=== PATIENT | male | born 1960 | race Caucasian/White ===

== ENCOUNTER → 2018-03-06 07:08 | Outpatient (CLI) | payer OTHER, SELFPAY ==
[2018-03-06 08:02] LABS: AST(SGOT) 20 U/L (15-37); Alanine Aminotransfer ALT/SGPT 30 U/L (16-61); Albumin, Serum 3.4 g/dL (3.2-5.0); Alkaline Phosphatase 110 U/L (45-117); Bilirubin, Direct 0.23 mg/dL (0.00-0.30); Cholesterol 107 mg/dL (200); Globulin 3.5 g/dL (2.2-4.2); High Density Lipoprotein 33 mg/dL; Protein, Total 6.9 g/dL (6.4-8.2); Triglycerides 160 mg/dL; Very Low Density Lipoprotein 32 mg/dL (5-40)
== END ==
PROVIDERS: Visit Provider Physician Assistant Medical
DX: E78.5 Hyperlipidemia, unspecified (principal); Z79.899 Other long term (current) drug therapy
CPT/HCPCS: 36415; 80061; 80076

== ENCOUNTER → 2018-05-20 12:05 | Outpatient (CLI) | payer OTHER, SELFPAY ==
[2018-05-20 13:32] LABS: Anion Gap 6 (5-15); BUN 13 mg/dL (7-18); BUN/Creat Ratio 13.1 RATIO (10-20); Calcium,Total 8.6 mg/dL (8.5-10.1); Chloride 108 mmol/L (98-107); Creatinine, Serum 0.99 mg/dL (0.70-1.30); EST Glomerular Filtration Rate 82 mL/min (>60); Est Glom Filt Rate - Afr Amer 99 mL/min (>60); Glucose 100 mg/dL (74-106); Potassium 4.3 mmol/L (3.5-5.1); Sodium Level 141 mmol/L (136-145)
== END ==
PROVIDERS: Visit Provider Internal Medicine Cardiovascular Disease
DX: I48.0 Paroxysmal atrial fibrillation (principal)
CPT/HCPCS: 36415; 80048

== ENCOUNTER → 2018-11-11 07:16 | Outpatient (CLI) | payer OTHER, SELFPAY ==
[2018-07-12 13:33] VITALS: BMI 35.4
[2018-11-11 08:50] LABS: AST(SGOT) 18 U/L (15-37); Alanine Aminotransfer ALT/SGPT 32 U/L (16-61); Albumin, Serum 3.3 g/dL (3.2-5.0); Alkaline Phosphatase 117 U/L (45-117); Bilirubin, Direct 0.18 mg/dL (0.00-0.30); Cholesterol 110 mg/dL (200); Globulin 3.6 g/dL (2.2-4.2); High Density Lipoprotein 36 mg/dL; Protein, Total 6.9 g/dL (6.4-8.2); Triglycerides 138 mg/dL; Very Low Density Lipoprotein 28 mg/dL (5-40)
== END ==
PROVIDERS: Referring Provider Internal Medicine Cardiovascular Disease; Visit Provider Internal Medicine Cardiovascular Disease
DX: E78.5 Hyperlipidemia, unspecified (principal)
CPT/HCPCS: 36415; 80061; 80076

== ENCOUNTER → 2019-05-09 07:33 | Outpatient (CLI) | payer OTHER, SELFPAY ==
[2019-03-17 11:12] VITALS: BMI 36.6
[2019-05-09 08:52] LABS: AST(SGOT) 19 U/L (15-37); Alanine Aminotransfer ALT/SGPT 33 U/L (16-61); Albumin, Serum 3.3 g/dL (3.2-5.0); Alkaline Phosphatase 116 U/L (45-117); Cholesterol 108 mg/dL (200); Globulin 3.3 g/dL (2.2-4.2); High Density Lipoprotein 35 mg/dL; Protein, Total 6.6 g/dL (6.4-8.2); Triglycerides 138 mg/dL; Very Low Density Lipoprotein 28 mg/dL (5-40)
== END ==
PROVIDERS: Referring Provider Internal Medicine Cardiovascular Disease; Visit Provider Internal Medicine Cardiovascular Disease
DX: E78.5 Hyperlipidemia, unspecified (principal)
CPT/HCPCS: 36415; 80061; 80076

== ENCOUNTER 2020-12-24 20:22 | Outpatient (RCR) | payer OTHER, SELFPAY ==
[2020-05-12 09:48] VITALS: BMI 34.0
[2020-12-24] MEDS: COVID-19 VACC, MRNA(PFIZER)/PF 30 MCG/0.3 ML SYRINGE IM (14:50)
[2021-01-14] MEDS: COVID-19 VACC, MRNA(PFIZER)/PF 30 MCG/0.3 ML SYRINGE IM (14:27)
== END 2021-03-22 23:59 ==
LOC: IMMUN 20:22
PROVIDERS: Visit Provider Family Medicine
DX: Z23 Encounter for immunization (principal)
CPT/HCPCS: 0001A; 0002A; 91300

== ENCOUNTER → 2021-03-09 07:04 | Outpatient (CLI) | payer OTHER, SELFPAY ==
[2021-02-21 09:45] VITALS: BMI 34.1
[2021-03-09 08:09] LABS: AST(SGOT) 20 U/L (15-37); Alanine Aminotransfer ALT/SGPT 29 U/L (16-61); Albumin, Serum 3.5 g/dL (3.2-5.0); Alkaline Phosphatase 102 U/L (45-117); Bilirubin, Direct 0.22 mg/dL (0.00-0.30); Cholesterol 107 mg/dL (200); Globulin 3.5 g/dL (2.2-4.2); High Density Lipoprotein 38 mg/dL; Triglycerides 136 mg/dL; Very Low Density Lipoprotein 27 mg/dL (5-40)
== END ==
PROVIDERS: Referring Provider Internal Medicine Cardiovascular Disease; Visit Provider Internal Medicine Cardiovascular Disease
DX: E78.00 Pure hypercholesterolemia, unspecified (principal)
CPT/HCPCS: 36415; 80061; 80076

== ENCOUNTER → 2021-07-28 14:44 | Outpatient (CLI) | payer OTHER, SELFPAY ==
[2021-07-28 14:48] LABS: Bacteria 0 SEEN /hpf (None Seen); Red Blood Cells-Urine 0 SEEN /hpf (0-5); Squamous Epithelial Cells - UA 0 SEEN /hpf (0-5); White Blood Cells 0 SEEN /hpf (0-5)
[2021-07-28 17:44] LABS: Absolute Lymphocyte Count 1.47 X10^3/uL (0.83-4.51); Absolute Neutrophil Count 6.8 X10^3/uL (2.0-7.7); Basophil# 0.07 X10^3/uL; Basophil% 0.8 % (0-1); Eosinophil# 0.14 X10^3/uL; Eosinophils% 1.5 % (0-5); Hematocrit 49.8 % (40-54); Hemoglobin 16.6 g/dL (13.0-16.5); Lymphocyte # 1.47 X10^3/ul (0.83-4.51); Lymphocyte % 16.1 % (19-41); Mean Corp Hgb Conc 33.3 g/dL (32-36); Mean Corpuscular Hgb 29.8 pg (27.0-32.0); Mean Corpuscular Volume 89.4 fL (80-94); Mean Platelet Vol. 10.1 fl (6.2-12.0); Monocyte# 0.59 X10^3/uL; Monocyte% 6.5 % (0-10); NRBC Flagged by Analyzer 0 % (0-5); Neutrophil # 6.79 X10^3/uL (2.7-7.7); Neutrophil % 74.6 % (47-70); Platelet Count 319 K/mm3 (150-450); RBC Distribution Width SD 42.6 fl (35.1-43.9); Red Blood Count 5.57 M/mm3 (4.6-6.2); White Blood Count 9.1 K/mm3 (4.4-11.0)
[2021-07-28 17:50] LABS: Color, Urine Yellow (Yellow); Glucose, Dipstick Normal (Normal); Ketone-Dipstick 5 mg/dl (Negative); Leukocyte Esterase-Dipstick 25 /ul (Negative); Nitrite-Dipstick Negative (Negative); Occult Blood-Urine Negative /ul (Negative); Protein-Dipstick 15 mg/dl (Negative); Urine Bilirubin Dipstick Negative (Negative); Urine Clarity Clear (Clear); Urine Urobilinogen 1 mg/dl (Normal); Urine pH 6.5 (5.0 - 8.0)
[2021-07-28 18:00] LABS: Mucous, Urine 1+ /hpf (<or=2+)
[2021-07-28 18:06] LABS: ALB/GLOB Ratio 0.9 RATIO (0.9-2.4); AST(SGOT) 20 U/L (15-37); Alanine Aminotransfer ALT/SGPT 37 U/L (16-61); Albumin, Serum 3.6 g/dL (3.2-5.0); Alkaline Phosphatase 116 U/L (45-117); Anion Gap 5 (5-15); BUN 16 mg/dL (7-18); BUN/Creat Ratio 15.7 RATIO (10-20); Calcium,Total 8.8 mg/dL (8.5-10.1); Chloride 107 mmol/L (98-107); Cholesterol 116 mg/dL (200); Creatinine, Serum 1.02 mg/dL (0.70-1.30); EST Glomerular Filtration Rate 78 mL/min (>60); Est Glom Filt Rate - Afr Amer 95 mL/min (>60); Glucose 110 mg/dL (74-106); High Density Lipoprotein 36 mg/dL; Potassium 4.2 mmol/L (3.5-5.1); Protein, Total 7.6 g/dL (6.4-8.2); Sodium Level 139 mmol/L (136-145); Thyroid Stim Hormone (TSH) 1.39 uIU/mL (0.358-3.74); Triglycerides 230 mg/dL; Very Low Density Lipoprotein 46 mg/dL (5-40)
[2021-07-29 14:28] LABS: Ferritin 150 ng/mL (26-388); Iron 80 ug/dL (65-175); Iron Binding Capacity,Total 224 ug/dL (250-450); PERCENT IRON SATURATION 35.7 % (15.0-55.0)
[2021-07-29 14:45] LABS: Hemoglobin A1c 5.7 % (3.8-5.6)
[2021-08-01 17:07] LABS: Transferrin 189 mg/dL (177-329)
[2021-08-01 17:17] LABS: Anti-Thyroglobulin AB < 1.0 IU/mL (0.0-0.9); Thyroid Peroxidase AB < 8 IU/mL (0-34)
== END ==
PROVIDERS: PCP Family Medicine; Referring Provider Family Medicine; Visit Provider Family Medicine
DX: D75.1 Secondary polycythemia (principal); I10 Essential (primary) hypertension; I48.91 Unspecified atrial fibrillation; R73.09 Other abnormal glucose
CPT/HCPCS: 36415; 80053; 80061; 81001; 82728; 83036; 83540; 83550; 83735; 84432; 84443; 84466; 85025; 86376; 86800

== ENCOUNTER → 2021-08-10 07:12 | Outpatient (CLI) | payer OTHER, SELFPAY ==
--- NOTE | 2021-08-10 07:15 | CT_ITS ---
STUDY: LOW DOSE CT LUNG CANCER SCREENING REASON FOR EXAM: Male, 60 years old. NICOTINE DEPENDENCY. Patient smoked 3 packs per day for 44 years. RADIATION DOSAGE (If Supplied By Facility): CTDIvol = ( 4.02 ) mGy, DLP = ( 157.03 ) mGycm TECHNIQUE: No contrast was administered. Low dose technique was utilized (average mAS-38 and kVp 120). 1.25 mm axial source images with a slice interval of 1.25-mm were reconstructed in lung windows. 2.5 mm axial source images with a slice interval of 2.5-mm were reconstructed in lung windows. 5.0 mm axial source images with a slice interval of 5.0-mm were reconstructed in soft tissue windows. Nodule measured using lung windows on PACS and/or independent workstation with automated measurement of minimum and maximum diameter. Nodule measurement reported as average diameter rounded to the nearest whole number. Growth is defined as an increase ins size of greater than 1.5 mm. COMPARISON: None. NODULES: No suspicious nodules are seen. Emphysema: Hyperinflation. Emphysematous changes. Endobronchial lesion: None Aorta: Mild calcific plaques at the level of the aortic arch. Coronary arteries: Coronary artery calcification. Pulmonary artery: Unremarkable. Mediastinal nodes: Small benign-appearing mediastinal lymph nodes. Other chest and abdominal findings: CT/Low Dose CT Lung Screening IMPRESSION: Lung-RADS category 2 - Continue annual screening with LDCT in 12 months. IMPORTANT NOTES FOR USE: ACR Lung-RADS Version 1.1 Assessment Categories Release Date: 2018 Category: Coded 0-4 bases on nodule(s) with highest degree of suspicion. Negative screen is defined as categories 1 and 2; a positive screen is defined as categories 3 and 4. Category 3 and 4A nodules that are unchanged on interval CT should be coded as category 2, and individuals returned to screening in 12 months. Category 4X: Category 3 or 4 nodules with additional imaging findings that increase the suspicion of lung cancer, such as spiculation, GGN that doubles in size in 1 year, enlarged lymph notes, etc. Category Modifiers: S (significant finding unrelated to lung cancer) Electronically Signed: Shiv Moran MD at 8:58 EDT , Service support ,
--- NOTE | 2021-08-10 07:16 | US_ITS ---
STUDY: THYROID ULTRASOUND REASON FOR EXAM: Male, 60 years old. THYROMEGALY TECHNIQUE: Ultrasound evaluation of the thyroid was performed with real-time and static briggs-scale imaging. COMPARISON: None. FINDINGS: RIGHT LOBE: The right lobe of the thyroid gland measures 5.2 x 2.1 x 1.9 cm. There is a homogeneous echotexture. There are no demonstrated solid, cystic or complex lesions. LEFT LOBE: The left lobe of the thyroid gland measures 4.7 x 2.2 x 1.9 cm. There is a homogeneous echotexture. There are no demonstrated solid, cystic or complex lesions. ISTHMUS: The isthmus measures 3 mm thick. . The regional lymph nodes are normal. US/Thyroid IMPRESSION: Normal ultrasound examination of the thyroid. Electronically Signed: David Guo MD at 8:51 EDT Tel , Service support ,
--- NOTE | 2021-08-10 07:17 | ECHOCS_ITS ---
Reason For Study: SOB Procedure This was a 2D Doppler, Color Flow transthoracic echocardiogram. The study was technically difficult. Contrast injection was performed. Exam performed in department. Left Ventricle Normal LV size. Left ventricular systolic function is normal. The estimated ejection fraction is 55 %. Stage 2 diastolic dysfunction. No regional wall motion abnormalities noted. Right Ventricle Normal RV size. Normal systolic function. Atria Normal left atrium. The right atrium is moderately enlarged. Mitral Valve Normal mitral valve. Tricuspid Valve Normal tricuspid valve. Mild (1+) tricuspid valve insufficiency. Pulmonary artery systolic pressure is 35 mmHg. Pulmonic Valve Normal pulmonic valve. Great Vessels Normal aortic root. The pulmonary artery is normal size. Normal inferior vena cava. Pericardium/Pleural No pericardial effusion. Medication 22 gauge I.V. with prn adaptor inserted into left arm. Diluted definity 3.0ml given slow IV push to enhance endocardial definition. MMode/2D Measurements & Calculations LVIDd: 4.9 cm IVSd: 0.99 cm Ao root diam: 3.8 cm LVIDs: 3.4 cm LVPWd: 1.0 cm RVDd: 3.7 cm FS: 29.6 % LAV(MOD-bp): 80.4 ml LVAd ap4: 44.5 cm2 LVAd ap2: 39.6 cm2 LAV(MOD-bp) Indexed: 31.5 ml/m2 LVLd ap4: 9.5 cm LVLd ap2: 9.5 cm LAV(MOD-sp2): 69.6 ml EDV(MOD-sp4): 172.9 ml EDV(MOD-sp2): 145.8 ml LAV(MOD-sp4): 86.9 ml EDV(sp4-el): 177.6 ml EDV(sp2-el): 140.9 ml LVAs ap4: 25.1 cm2 LVAs ap2: 24.9 cm2 LVLs ap4: 7.7 cm LVLs ap2: 8.1 cm ESV(MOD-sp4): 67.3 ml ESV(MOD-sp2): 66.3 ml ESV(sp4-el): 69.5 ml ESV(sp2-el): 65.6 ml EF(MOD-sp4): 61.1 % EF(MOD-sp2): 54.5 % EF(sp4-el): 60.9 % SV(MOD-sp4): 105.7 ml SV(MOD-sp2): 79.5 ml SV(sp4-el): 108.1 ml LA dimension(2D): 2.8 cm LA A4 area: 25.8 cm2 RA A4 area: 20.2 cm2 Doppler Measurements & Calculations MV E max arie: 71.0 cm/sec Lat Peak E' Arie: 11.5 cm/sec Med Peak E' Arie: 8.0 cm/sec MV A max arie: 58.3 cm/sec E/E' lat: 6.2 E/E' med: 8.9 MV E/A: 1.2 Ao V2 max: 108.4 cm/sec LV V1 max: 91.4 cm/sec PA V2 max: 74.9 cm/sec Ao max P.7 mmHg LV V1 max P.3 mmHg TR max arie: 276.9 cm/sec TR max P.7 mmHg ECHO/Echo Complete W/ Contrast Interpretation Summary Normal LV size. Left ventricular systolic function is normal. The estimated ejection fraction is 55 %. The right atrium is moderately enlarged. Pulmonary artery systolic pressure is 35 mmHg. Stage 2 diastolic dysfunction. Ordering Physician: Markus Gunter Referring Physician: Markus Gunter Performed By: Ivette Oscar, SONIA, RVT
== END ==
PROVIDERS: PCP Family Medicine; Referring Provider Family Medicine; Visit Provider Family Medicine
DX: R06.02 Shortness of breath (principal); Z12.2 Encounter for screening for malignant neoplasm of respiratory organs; F17.210 Nicotine dependence, cigarettes, uncomplicated; I51.7 Cardiomegaly
CPT/HCPCS: 71271; 76536; 93306; Q9957; A4216; C8929; J3490

== ENCOUNTER 2021-12-27 10:06 | Outpatient (CLI) | payer OTHER, SELFPAY ==
[2021-12-27 12:07] LABS: Absolute Lymphocyte Count 1.35 X10^3/uL (0.83-4.51); Absolute Neutrophil Count 4.5 X10^3/uL (2.0-7.7); Basophil# 0.06 X10^3/uL; Basophil% 0.9 % (0-1); Eosinophil# 0.15 X10^3/uL; Eosinophils% 2.3 % (0-5); Hematocrit 49.4 % (40-54); Hemoglobin 16.6 g/dL (13.0-16.5); Lymphocyte # 1.35 X10^3/ul (0.83-4.51); Lymphocyte % 20.3 % (19-41); Mean Corp Hgb Conc 33.6 g/dL (32-36); Mean Corpuscular Hgb 30.5 pg (27.0-32.0); Mean Corpuscular Volume 90.8 fL (80-94); Mean Platelet Vol. 9.6 fl (6.2-12.0); Monocyte# 0.52 X10^3/uL; Monocyte% 7.8 % (0-10); NRBC Flagged by Analyzer 0 % (0-5); Neutrophil # 4.52 X10^3/uL (2.7-7.7); Neutrophil % 67.9 % (47-70); Platelet Count 311 K/mm3 (150-450); RBC Distribution Width CV 12.8 % (11.6-14.6); RBC Distribution Width SD 41.9 fl (35.1-43.9); Red Blood Count 5.44 M/mm3 (4.6-6.2); White Blood Count 6.7 K/mm3 (4.4-11.0)
[2021-12-27 12:42] LABS: Hemoglobin A1c 5.9 % (3.8-5.6)
[2021-12-27 12:47] LABS: AST(SGOT) 21 U/L (15-37); Alanine Aminotransfer ALT/SGPT 36 U/L (16-61); Albumin, Serum 3.6 g/dL (3.2-5.0); Alkaline Phosphatase 98 U/L (45-117); Anion Gap 4 (5-15); BUN 15 mg/dL (7-18); BUN/Creat Ratio 15.3 RATIO (10-20); Calcium,Total 9.1 mg/dL (8.5-10.1); Chloride 106 mmol/L (98-107); Cholesterol 106 mg/dL (200); Creatinine, Serum 0.98 mg/dL (0.70-1.30); EST Glomerular Filtration Rate 82 mL/min (>60); Est Glom Filt Rate - Afr Amer 99 mL/min (>60); Globulin 3.6 g/dL (2.2-4.2); Glucose 125 mg/dL (74-106); High Density Lipoprotein 35 mg/dL; Magnesium 1.9 mg/dL (1.6-2.6); Potassium 4.4 mmol/L (3.5-5.1); Protein, Total 7.2 g/dL (6.4-8.2); Sodium Level 138 mmol/L (136-145); Triglycerides 128 mg/dL; Very Low Density Lipoprotein 26 mg/dL (5-40)
== END 2021-12-27 23:59 | disposition home or self-care (01) ==
LOC: MFPLAB 10:07
PROVIDERS: PCP Family Medicine; Referring Provider Family Medicine; Visit Provider Family Medicine
DX: I25.10 Atherosclerotic heart disease of native coronary artery without angina pectoris (principal); I48.91 Unspecified atrial fibrillation; I10 Essential (primary) hypertension; R73.02 Impaired glucose tolerance (oral)
CPT/HCPCS: 36415; 80053; 80061; 83036; 83735; 85025

== ENCOUNTER → 2022-04-25 | Outpatient (CLI) | payer OTHER, SELFPAY ==
[2022-04-25 21:16] LABS: Hemoglobin A1c 5.7 % (3.8-5.6)
== END | disposition home or self-care (01) ==
LOC: MFPLAB 09:37
PROVIDERS: PCP Family Medicine; Referring Provider Family Medicine; Visit Provider Family Medicine
DX: R73.02 Impaired glucose tolerance (oral) (principal)
CPT/HCPCS: 36415; 83036

== ENCOUNTER → 2022-07-28 | Outpatient (CLI) | payer OTHER, SELFPAY ==
[2022-07-28 09:30] LABS: Bacteria 0 SEEN /hpf (None Seen); Mucous, Urine 0 SEEN /hpf (<or=2+); Red Blood Cells-Urine 0 SEEN /hpf (0-5); Squamous Epithelial Cells - UA 0 SEEN /hpf (0-5); White Blood Cells 0 SEEN /hpf (0-5)
[2022-07-28 10:00] LABS: Absolute Lymphocyte Count 1.32 X10^3/uL (0.83-4.51); Absolute Neutrophil Count 4.2 X10^3/uL (2.0-7.7); Basophil# 0.06 X10^3/uL; Eosinophil# 0.25 X10^3/uL; Hematocrit 47.3 % (40-54); Lymphocyte # 1.32 X10^3/ul (0.83-4.51); Mean Corp Hgb Conc 33.8 g/dL (32-36); Mean Corpuscular Hgb 30.9 pg (27.0-32.0); Mean Corpuscular Volume 91.5 fL (80-94); Mean Platelet Vol. 9.1 fl (6.2-12.0); Monocyte# 0.47 X10^3/uL; Monocyte% 7.5 % (0-10); NRBC Flagged by Analyzer 0 % (0-5); Neutrophil # 4.17 X10^3/uL (2.7-7.7); Platelet Count 262 K/mm3 (150-450); RBC Distribution Width CV 12.8 % (11.6-14.6); RBC Distribution Width SD 43.3 fl (35.1-43.9); Red Blood Count 5.17 M/mm3 (4.6-6.2); White Blood Count 6.3 K/mm3 (4.4-11.0)
[2022-07-28 10:04] LABS: Color, Urine Yellow (Yellow); Glucose, Dipstick Normal (Normal); Ketone-Dipstick 5 mg/dl (Negative); Leukocyte Esterase-Dipstick 25 /ul (Negative); Nitrite-Dipstick Negative (Negative); Occult Blood-Urine Negative /ul (Negative); Protein-Dipstick Negative (Negative); Urine Bilirubin Dipstick Negative (Negative); Urine Clarity Clear (Clear); Urine Urobilinogen Normal (Normal)
[2022-07-28 10:49] LABS: Anion Gap 5 (5-15); BUN 17 mg/dL (7-18); BUN/Creat Ratio 19.3 RATIO (10-20); Calcium,Total 8.7 mg/dL (8.5-10.1); Chloride 111 mmol/L (98-107); Cholesterol 103 mg/dL (200); Creatinine, Serum 0.88 mg/dL (0.70-1.30); EST Glomerular Filtration Rate 93 mL/min (>60); Est Glom Filt Rate - Afr Amer 112 mL/min (>60); Glucose 115 mg/dL (74-106); High Density Lipoprotein 38 mg/dL; Potassium 4.3 mmol/L (3.5-5.1); Sodium Level 141 mmol/L (136-145); Triglycerides 105 mg/dL; Very Low Density Lipoprotein 21 mg/dL (5-40)
[2022-07-28 10:58] LABS: Hemoglobin A1c 5.8 % (3.8-5.6)
== END | disposition home or self-care (01) ==
LOC: MFPLAB 09:29
PROVIDERS: PCP Family Medicine; Referring Provider Family Medicine; Visit Provider Family Medicine
DX: I10 Essential (primary) hypertension (principal); D75.1 Secondary polycythemia; E78.5 Hyperlipidemia, unspecified; R73.09 Other abnormal glucose
CPT/HCPCS: 36415; 80048; 80061; 81001; 83036; 83735; 85025

== ENCOUNTER → 2022-11-22 | Outpatient (CLI) | payer OTHER, SELFPAY ==
[2022-11-22 09:42] LABS: Bacteria 0 SEEN /hpf (None Seen); Mucous, Urine 0 SEEN /hpf (<or=2+); Red Blood Cells-Urine 0 SEEN /hpf (0-5); Squamous Epithelial Cells - UA 0 SEEN /hpf (0-5); White Blood Cells 0 SEEN /hpf (0-5)
[2022-11-22 10:13] LABS: Absolute Lymphocyte Count 1.28 X10^3/uL (0.83-4.51); Absolute Neutrophil Count 4.8 X10^3/uL (2.0-7.7); Basophil# 0.09 X10^3/uL; Basophil% 1.3 % (0-1); Eosinophil# 0.35 X10^3/uL; Eosinophils% 4.9 % (0-5); Hematocrit 47.8 % (40-54); Hemoglobin 15.9 g/dL (13.0-16.5); Lymphocyte # 1.28 X10^3/ul (0.83-4.51); Mean Corp Hgb Conc 33.3 g/dL (32-36); Mean Corpuscular Hgb 30.4 pg (27.0-32.0); Mean Corpuscular Volume 91.4 fL (80-94); Mean Platelet Vol. 9.2 fl (6.2-12.0); Monocyte# 0.55 X10^3/uL; Monocyte% 7.7 % (0-10); NRBC Flagged by Analyzer 0 % (0-5); Neutrophil # 4.83 X10^3/uL (2.7-7.7); Neutrophil % 67.7 % (47-70); Platelet Count 265 K/mm3 (150-450); RBC Distribution Width SD 44.3 fl (35.1-43.9); Red Blood Count 5.23 M/mm3 (4.6-6.2); White Blood Count 7.1 K/mm3 (4.4-11.0)
[2022-11-22 10:14] LABS: Color, Urine Yellow (Yellow); Glucose, Dipstick Normal (Normal); Ketone-Dipstick 5 mg/dl (Negative); Leukocyte Esterase-Dipstick 25 /ul (Negative); Nitrite-Dipstick Negative (Negative); Occult Blood-Urine Negative /ul (Negative); Protein-Dipstick Negative (Negative); Urine Bilirubin Dipstick Negative (Negative); Urine Clarity Clear (Clear); Urine Urobilinogen 1 mg/dl (Normal)
[2022-11-22 10:30] LABS: Hemoglobin A1c 5.8 % (3.8-5.6)
[2022-11-22 10:57] LABS: AST(SGOT) 16 U/L (15-37); Alanine Aminotransfer ALT/SGPT 26 U/L (16-61); Albumin, Serum 3.5 g/dL (3.2-5.0); Alkaline Phosphatase 90 U/L (45-117); Anion Gap 3 (5-15); BUN 19 mg/dL (7-18); BUN/Creat Ratio 20.9 RATIO (10-20); Chloride 109 mmol/L (98-107); Cholesterol 107 mg/dL (200); Creatinine, Serum 0.91 mg/dL (0.70-1.30); EST Glomerular Filtration Rate 89 mL/min (>60); Est Glom Filt Rate - Afr Amer 108 mL/min (>60); Globulin 3.5 g/dL (2.2-4.2); Glucose 122 mg/dL (74-106); High Density Lipoprotein 41 mg/dL; Magnesium 2.1 mg/dL (1.6-2.6); Potassium 4.3 mmol/L (3.5-5.1); Sodium Level 141 mmol/L (136-145); Thyroid Stim Hormone (TSH) 1.55 uIU/mL (0.358-3.74); Triglycerides 112 mg/dL; Very Low Density Lipoprotein 22 mg/dL (5-40)
== END | disposition home or self-care (01) ==
LOC: MFPLAB 09:40
PROVIDERS: PCP Family Medicine; Referring Provider Family Medicine; Visit Provider Family Medicine
DX: I10 Essential (primary) hypertension (principal); I48.91 Unspecified atrial fibrillation; R73.02 Impaired glucose tolerance (oral)
CPT/HCPCS: 36415; 80053; 80061; 81001; 83036; 83735; 84443; 85025

== ENCOUNTER → 2023-02-21 | Outpatient (CLI) | payer OTHER, SELFPAY ==
[2023-02-21 12:31] LABS: Absolute Lymphocyte Count 1.69 X10^3/uL (0.83-4.51); Absolute Neutrophil Count 5.2 X10^3/uL (2.0-7.7); Basophil# 0.09 X10^3/uL; Basophil% 1.1 % (0-1); Eosinophil# 0.28 X10^3/uL; Eosinophils% 3.5 % (0-5); Hematocrit 51.1 % (40-54); Lymphocyte # 1.69 X10^3/ul (0.83-4.51); Lymphocyte % 21.3 % (19-41); Mean Corp Hgb Conc 33.3 g/dL (32-36); Mean Corpuscular Hgb 30.2 pg (27.0-32.0); Mean Corpuscular Volume 90.9 fL (80-94); Mean Platelet Vol. 9.8 fl (6.2-12.0); Monocyte# 0.63 X10^3/uL; Monocyte% 7.9 % (0-10); NRBC Flagged by Analyzer 0 % (0-5); Neutrophil # 5.22 X10^3/uL (2.7-7.7); Neutrophil % 65.7 % (47-70); Platelet Count 299 K/mm3 (150-450); RBC Distribution Width CV 12.9 % (11.6-14.6); RBC Distribution Width SD 43.5 fl (35.1-43.9); Red Blood Count 5.62 M/mm3 (4.6-6.2)
[2023-02-21 13:04] LABS: ALB/GLOB Ratio 0.9 RATIO (0.9-2.4); AST(SGOT) 14 U/L (15-37); Alanine Aminotransfer ALT/SGPT 29 U/L (16-61); Albumin, Serum 3.5 g/dL (3.2-5.0); Alkaline Phosphatase 90 U/L (45-117); Anion Gap 6 (5-15); BUN 20 mg/dL (7-18); BUN/Creat Ratio 17.4 RATIO (10-20); Calcium,Total 9.1 mg/dL (8.5-10.1); Chloride 109 mmol/L (98-107); Cholesterol 113 mg/dL (200); Creatinine, Serum 1.15 mg/dL (0.70-1.30); EST Glomerular Filtration Rate 68 mL/min (>60); Est Glom Filt Rate - Afr Amer 82 mL/min (>60); Globulin 3.8 g/dL (2.2-4.2); Glucose 110 mg/dL (74-106); High Density Lipoprotein 40 mg/dL; Magnesium 2.3 mg/dL (1.6-2.6); Potassium 4.6 mmol/L (3.5-5.1); Protein, Total 7.3 g/dL (6.4-8.2); Sodium Level 140 mmol/L (136-145); Triglycerides 111 mg/dL; Very Low Density Lipoprotein 22 mg/dL (5-40)
[2023-02-21 13:20] LABS: Hemoglobin A1c 5.7 % (3.8-5.6)
== END | disposition home or self-care (01) ==
LOC: MFPLAB 09:51
PROVIDERS: PCP Family Medicine; Visit Provider Family Medicine
DX: I25.10 Atherosclerotic heart disease of native coronary artery without angina pectoris (principal); I48.91 Unspecified atrial fibrillation; R73.02 Impaired glucose tolerance (oral)
CPT/HCPCS: 36415; 80053; 80061; 83036; 83735; 85025

== ENCOUNTER → 2023-06-25 | Outpatient (CLI) | payer OTHER, SELFPAY ==
[2023-06-25 09:19] LABS: Bacteria 0 SEEN /hpf (None Seen); Mucous, Urine 0 SEEN /hpf (<or=2+); Red Blood Cells-Urine 0 SEEN /hpf (0-5); Squamous Epithelial Cells - UA 0 SEEN /hpf (0-5); White Blood Cells 0 SEEN /hpf (0-5)
[2023-06-25 10:23] LABS: Absolute Lymphocyte Count 1.75 X10^3/uL (0.83-4.51); Absolute Neutrophil Count 5.5 X10^3/uL (2.0-7.7); Basophil# 0.09 X10^3/uL; Basophil% 1.1 % (0-1); Eosinophil# 0.28 X10^3/uL; Eosinophils% 3.4 % (0-5); Hematocrit 52.4 % (40-54); Hemoglobin 17.3 g/dL (13.0-16.5); Lymphocyte # 1.75 X10^3/ul (0.83-4.51); Lymphocyte % 21.2 % (19-41); Mean Corpuscular Volume 90.8 fL (80-94); Mean Platelet Vol. 9.6 fl (6.2-12.0); Monocyte# 0.59 X10^3/uL; Monocyte% 7.2 % (0-10); NRBC Flagged by Analyzer 0 % (0-5); Neutrophil # 5.48 X10^3/uL (2.7-7.7); Neutrophil % 66.4 % (47-70); Platelet Count 301 K/mm3 (150-450); RBC Distribution Width SD 43.6 fl (35.1-43.9); Red Blood Count 5.77 M/mm3 (4.6-6.2); White Blood Count 8.3 K/mm3 (4.4-11.0)
[2023-06-25 10:45] LABS: Color, Urine Yellow (Yellow); Glucose, Dipstick Normal (Normal); Ketone-Dipstick Negative (Negative); Leukocyte Esterase-Dipstick Negative /ul (Negative); Nitrite-Dipstick Negative (Negative); Occult Blood-Urine Negative /ul (Negative); Protein-Dipstick Negative (Negative); Specific Gravity, Urine 1.005 (1.002-1.030); Urine Bilirubin Dipstick Negative (Negative); Urine Clarity Clear (Clear); Urine Urobilinogen Normal (Normal)
[2023-06-25 10:59] LABS: AST(SGOT) 16 U/L (15-37); Alanine Aminotransfer ALT/SGPT 31 U/L (16-61); Albumin, Serum 3.4 g/dL (3.2-5.0); Alkaline Phosphatase 91 U/L (45-117); Anion Gap 7 (5-15); BUN 18 mg/dL (7-18); BUN/Creat Ratio 17.1 RATIO (10-20); Calcium,Total 9.2 mg/dL (8.5-10.1); Chloride 108 mmol/L (98-107); Cholesterol 111 mg/dL (200); Creatinine, Serum 1.05 mg/dL (0.70-1.30); EST Glomerular Filtration Rate 75 mL/min (>60); Est Glom Filt Rate - Afr Amer 91 mL/min (>60); Globulin 3.5 g/dL (2.2-4.2); Glucose 137 mg/dL (74-106); High Density Lipoprotein 37 mg/dL; Magnesium 2.2 mg/dL (1.6-2.6); Potassium 4.3 mmol/L (3.5-5.1); Protein, Total 6.9 g/dL (6.4-8.2); Sodium Level 139 mmol/L (136-145); Triglycerides 136 mg/dL; Very Low Density Lipoprotein 27 mg/dL (5-40)
[2023-06-25 11:33] LABS: Hemoglobin A1c 5.6 % (3.8-5.6)
== END | disposition home or self-care (01) ==
LOC: MFPLAB 09:17
PROVIDERS: PCP Family Medicine; Visit Provider Family Medicine
DX: I10 Essential (primary) hypertension (principal); I48.91 Unspecified atrial fibrillation; R73.02 Impaired glucose tolerance (oral)
CPT/HCPCS: 36415; 80053; 80061; 81001; 83036; 83735; 85025

== ENCOUNTER → 2023-12-25 | Outpatient (CLI) | payer MEDICARE, SELFPAY ==
[2023-12-25 11:01] LABS: Bacteria 0 SEEN /hpf (None Seen); Mucous, Urine 0 SEEN /hpf (<or=2+); Red Blood Cells-Urine 0 SEEN /hpf (0-5); Squamous Epithelial Cells - UA 0 SEEN /hpf (0-5); White Blood Cells 0 SEEN /hpf (0-5)
[2023-12-25 15:32] LABS: Absolute Lymphocyte Count 1.58 X10^3/uL (0.83-4.51); Absolute Neutrophil Count 4.4 X10^3/uL (2.0-7.7); Basophil% 1.4 % (0-1); Eosinophil# 0.29 X10^3/uL; Eosinophils% 4.1 % (0-5); Hematocrit 52.4 % (40-54); Hemoglobin 17.2 g/dL (13.0-16.5); Lymphocyte # 1.58 X10^3/ul (0.83-4.51); Lymphocyte % 22.5 % (19-41); Mean Corp Hgb Conc 32.8 g/dL (32-36); Mean Corpuscular Hgb 30.2 pg (27.0-32.0); Mean Corpuscular Volume 91.9 fL (80-94); Monocyte# 0.59 X10^3/uL; Monocyte% 8.4 % (0-10); NRBC Flagged by Analyzer 0 % (0-5); Neutrophil # 4.41 X10^3/uL (2.7-7.7); Neutrophil % 62.9 % (47-70); Platelet Count 300 K/mm3 (150-450); RBC Distribution Width CV 13.4 % (11.6-14.6); RBC Distribution Width SD 45.4 fl (35.1-43.9)
[2023-12-25 15:39] LABS: Color, Urine Yellow (Yellow); Glucose, Dipstick Normal (Normal); Ketone-Dipstick 5 mg/dl (Negative); Leukocyte Esterase-Dipstick 25 /ul (Negative); Nitrite-Dipstick Negative (Negative); Occult Blood-Urine 10 /ul (Negative); Protein-Dipstick 15 mg/dl (Negative); Urine Bilirubin Dipstick Negative (Negative); Urine Clarity Clear (Clear); Urine Urobilinogen Normal (Normal)
[2023-12-25 19:43] LABS: AST(SGOT) 20 U/L (15-37); Alanine Aminotransfer ALT/SGPT 28 U/L (16-61); Albumin, Serum 3.6 g/dL (3.2-5.0); Alkaline Phosphatase 91 U/L (45-117); Anion Gap 6 (5-15); BUN 18 mg/dL (7-18); BUN/Creat Ratio 16.5 RATIO (10-20); Chloride 107 mmol/L (98-107); Cholesterol 110 mg/dL (200); Creatinine, Serum 1.09 mg/dL (0.70-1.30); EST Glomerular Filtration Rate 72 mL/min (>60); Est Glom Filt Rate - Afr Amer 87 mL/min (>60); Globulin 3.6 g/dL (2.2-4.2); Glucose 123 mg/dL (74-106); High Density Lipoprotein 41 mg/dL; Magnesium 2.2 mg/dL (1.6-2.6); Potassium 4.3 mmol/L (3.5-5.1); Protein, Total 7.2 g/dL (6.4-8.2); Sodium Level 139 mmol/L (136-145); Thyroid Stim Hormone (TSH) 1.25 uIU/mL (0.358-3.74); Triglycerides 107 mg/dL; Very Low Density Lipoprotein 21 mg/dL (5-40)
--- OUTSIDE RECORDS SUMMARY | 2023-12-26 00:15 | XMS RPT_ITS | CCD ---
Author Name Unknown Address [address] [place] [address] Organization [facility] Care Team Providers Care Engineer Station Mainline Name Role Phone [facility] Fátima Unavailable Unavailable Medications Completed/Discontinued Medications Medication Drug Class(es) Dates Sig (Normalized) Sig (Original) aspirin 81 mg oral tablet (1 source) Nonsteroidal Anti-inflammatory Drug Start: 11-25-2013 take 1 tablet by mouth once daily ASPIRIN 81 MG TABS One tablet by mouth daily ASPIRIN [id number] Aleta Francois RN atorvastatin 80 mg oral tablet (1 source) HMG-CoA Reductase Inhibitor Start: 11-25-2013 take 1 tablet by mouth once daily LIPITOR 80 MG TABS One tablet by mouth daily ATORVASTATIN CALCIUM [id number] Harshad Blair MD clopidogrel 75 mg oral tablet (1 source) P2Y12 Platelet Inhibitor Start: 11-25-2013 take 1 tablet by mouth once daily PLAVIX 75 MG TABS One tablet by mouth daily CLOPIDOGREL BISULFATE [id number] Harshad Blair MD lisinopril 5 mg oral tablet (1 source) Angiotensin Converting Enzyme Inhibitor Start: 11-25-2013 take 1 tablet by mouth once daily LISINOPRIL 5 MG TABS One tablet by mouth daily LISINOPRIL [id number] Harshad Blair MD metoprolol tartrate 25 mg oral tablet (1 source) beta-Adrenergic Isi Start: 11-25-2013 take 1 tablet by mouth twice daily METOPROLOL TARTRATE 25 MG TABS One tablet by mouth twice daily METOPROLOL TARTRATE [id number] Harshad Blair MD Problems Active Problems Problem Classification Problem Date Documented Da te Episodic/Chronic Acute myocardial infarction (1 source) Non-ST elevation (NSTEMI) myocardial infarction; Translations: [Non-ST elevation (NSTEMI) myocardial infarction] Onset: 11-25-2013 11-25-2013 Chronic Cardiac dysrhythmias (2 sources) Paroxysmal atrial fibrillation; Translations: [Atrial fibrillation] Onset: 11-25-2013 05-18-2016 Chronic Coronary atherosclerosis and other heart disease (2 sources) Coronary atherosclerosis; Translations: [Atherosclerotic heart disease of redding coronary artery without angina pectoris] Onset: 11-25-2013 11-25-2013 Chronic Disorders of lipid metabolism (1 source) Hyperlipidemia; Translations: [Hyperlipidemia, unspecified] Onset: 11-18-2014 11-18-2014 Chronic Essential hypertension (1 source) Hypertensive disorder; Translations: [Essential (primary) hypertension] Onset: 11-25-2013 11-25-2013 Chronic Substance-related disorders (1 source) Tobacco dependence syndrome; Translations: [Nicotine dependence, unspecified, uncomplicated] Onset: 01-19-2014 01-19-2014 Chronic Unclassified (3 sources) Body mass index (BMI) 30.0-30.9, adult; Translations: [Body mass index (BMI) 31.0-31.9, adult] Onset: 01-19-2014 01-19-2014 Chronic Unclassified (1 source) Percutaneous transluminal coronary angioplasty ; Translations: [Coronary angioplasty status] Onset: 11-25-2013 11-25-2013 Past or Other Problems Problem Classification Problem Date Documented Da te Episodic/Chronic Other aftercare (1 source) Other skilled nursing (current) drug therapy; Translations: [Other joint terminal attack controller (current) drug therapy] Onset: 05-24-2015 05-24-2015 Episodic Other connective tissue disease (1 source) Hematoma; Translations: [Other injury of unspecified body region] Onset: 11-27-2013 11-28-2013 Episodic Unclassified (2 sources) Long-term drug therapy; Translations: [Long-term (current) use of other medications] Onset: 11-18-2014 Resolved: 05-24-2015 11-18-2014 Results Test Name Value Interpretation Reference Range Facil ity Vital Signs Date Time Vital Sign Value Performing Clinician Eliana logan 02-16-2017 14:03-0400 BMI (Body Mass Index) 32.61 kg/m2 [facility] Work Phone: 02-16-2017 14:03-0400 BP Diastolic 72 mm[Hg] [employer] [facility] Work Phone: 02-16-2017 14:03-0400 BP Systolic 122 mm[Hg] Harumi DeFinis [facility] Work Phone: 02-16-2017 14:03-0400 Pulse (Heart Rate) 72 /min Harumi TimeLyn[employer] [facility] Work Phone: 02-16-2017 14:03-0400 Respiratory Rate 18 /min [facility] Work Phone: 02-16-2017 14:03-0400 Weight 124.74 kg [facility] Work Phone: 05-19-2016 09:15-0400 BSA (Body Surface Area) 2.55 m2 [facility] Work Phone: 11-27-2013 08:26-0500 Height 195.58 cm [facility] Work Phone: Procedures Date Procedure Procedure Detail Performing Clinician Start: 06-04-2017 End: 08-20-2017 *Hepatic Function Panel Sherley morrell PA-C Work Phone: Start: 06-04-2017 End: 08-20-2017 Lipid 1996 panel - Serum or Plasma Sherley Goncalves PA-C Work Phone: Start: 11-15-2016 End: 12-04-2016 *Hepatic Function Panel Sherley morrell PA-C Work Phone: Start: 11-15-2016 End: 12-04-2016 Lipid 1996 panel - Serum or Plasma Sherley Goncalves PA-C Work Phone: Start: 05-19-2016 End: 05-19-2016 Follow Up Appt 6 months Sherley morrell PA-C Work Phone: Start: 05-19-2016 End: 05-19-2016 PFM Sherley Goncalves PA-C Work Phone: Start: 05-08-2016 End: 05-10-2016 *Hepatic Function Panel Sherley morrell PA-C Work Phone: Start: 05-08-2016 End: 05-10-2016 Lipid 1996 panel - Serum or Plasma Sherley Goncalves PA-C Work Phone: Start: 11-15-2015 End: 05-10-2016 *Hepatic Function Panel Harshad Blair MD Start: 11-15-2015 End: 11-15-2015 Follow Up Appt 6 months Harshad Blair MD Start: 11-15-2015 End: 05-10-2016 Lipid 1996 panel - Serum or Plasma Harshad Blair MD Start: 11-15-2015 End: 11-15-2015 MMM Harshad Blair MD Start: 11-08-2015 End: 11-08-2015 *Hepatic Function Panel Sherley morrell PA-C Work Phone: Start: 11-08-2015 End: 11-08-2015 Lipid 1996 panel - Serum or Plasma Sherley Goncalves PA-C Work Phone: Start: 05-24-2015 End: 05-25-2015 *Hepatic Function Panel Sherley morrell PA-C Work Phone: Start: 05-24-2015 End: 05-25-2015 Documentation of current medications Sherley Goncalves PA-C Work Phone: Start: 05-24-2015 End: 05-24-2015 Ecg routine ecg w/least 12 lds w/i&r Sherley Goncalves PA-C Work Phone: Start: 05-24-2015 End: 05-24-2015 Follow Up Appt 6 months Sherley morrell PA-C Work Phone: Start: 05-24-2015 End: 05-25-2015 Lipid 1996 panel - Serum or Plasma Sherley Goncalves PA-C Work Phone: Start: 05-24-2015 End: 05-24-2015 PFM Sehrley Goncalves PA-C Work Phone: Start: 05-24-2015 End: 05-25-2015 Smoking cessation education Sherley Frederick PA-C Work Phone: Start: 05-18-2015 End: 05-21-2015 *Hepatic Function Panel Sherley morrell PA-C Work Phone: Start: 05-18-2015 End: 05-21-2015 Lipid 1996 panel - Serum or Plasma Sherley Goncalves PA-C Work Phone: Start: 11-23-2014 End: 11-24-2014 Documentation of current medications Harshad Blair MD Start: 11-23-2014 End: 11-23-2014 Follow Up Appt 6 months Harshad Blair MD Start: 11-23-2014 End: 11-23-2014 SEBASTIAN Blair MD Start: 11-23-2014 End: 11-24-2014 Smoking cessation education Harshad nolan MD Start: 04-20-2014 End: 04-20-2014 Follow Up Appt 6 months Sherley morrell PA-C Work Phone: Start: 04-20-2014 End: 04-20-2014 PFM Sherley Goncalves PA-C Work Phone: Start: 01-19-2014 End: 01-19-2014 Ecg routine ecg w/least 12 lds w/i&r Harshad Blair MD Start: 01-19-2014 End: 01-19-2014 Follow Up Appt 3 months Harshad Blair MD Start: 01-19-2014 End: 01-19-2014 SEBASTIAN Blair MD Start: 01-10-2014 End: 01-15-2014 *Hepatic Function Panel Sherley morrell PA-C Work Phone: Start: 01-10-2014 End: 01-15-2014 Lipid 1996 panel - Serum or Plasma Sherley Goncalves PA-C Work Phone: Start: 12-23-2013 End: 12-23-2013 Nurse, Teaching, Wound Check (no charge) Harshad Blair MD Start: 12-04-2013 End: 12-04-2013 Nurse, Teaching, Wound Check (no charge) Sherley Goncalves PA-C Work Phone: Start: 11-27-2013 End: 12-04-2013 Arterial exam Sherley Goncalves PA-C Work Phone: Start: 11-27-2013 End: 02-19-2014 Cardiac Rehab Sherley Goncalves PA-C Work Phone: Start: 11-27-2013 End: 04-20-2014 Cardiovascular stress test using treadmill Sherley Goncalves PA-C Work Phone: Start: 11-27-2013 End: 11-27-2013 Follow Up Appt 6 weeks Sherley oglesby PA-C Work Phone: Start: 11-27-2013 End: 11-27-2013 Follow Up Appt Other Sherley france PA-C Work Phone: Start: 11-27-2013 End: 11-27-2013 PFM Sherley Goncalves PA-C Work Phone: Plan of Treatment Date Care Activity Detail Author Start: 02-18-2018 End: 08-21-2017 *Hepatic Function Panel *Hepatic Function Panel [facility] Work Phone: Start: 02-18-2018 End: 08-21-2017 Lipid panel [AGGREGATE] *Lipid Profile CC PCP [facility] Work Phone: Start: 08-23-2017 End: 08-23-2017 Appointment Appointment [facility] Work Phone: Start: 06-04-2017 End: 08-20-2017 *Hepatic Function Panel *Hepatic Function Panel [facility] Work Phone: Start: 06-04-2017 End: 08-20-2017 Lipid panel [AGGREGATE] *Lipid Profile CC PCP [facility] Work Phone: Start: 02-16-2017 End: 02-16-2017 Follow Up Appt 6 months Follow Up Appt 6 months [facility] Work Phone: Start: 02-16-2017 End: 02-16-2017 MMM MMM [facility] Work Phone: Start: 11-15-2016 End: 12-04-2016 *Hepatic Function Panel *Hepatic Function Panel [facility] Work Phone: Start: 11-15-2016 End: 12-04-2016 Lipid panel [AGGREGATE] *Lipid Profile CC PCP [facility] Work Phone: Start: 05-19-2016 End: 05-19-2016 Follow Up Appt 6 months Follow Up Appt 6 months [facility] Work Phone: Start: 05-19-2016 End: 05-19-2016 PFM PFM [facility] Work Phone: Start: 05-08-2016 End: 05-10-2016 *Hepatic Function Panel *Hepatic Function Panel [facility] Work Phone: Start: 05-08-2016 End: 05-10-2016 Lipid panel [AGGREGATE] *Lipid Profile CC PCP [facility] Work Phone: Start: 11-22-2015 End: 11-08-2015 *Hepatic Function Panel *Hepatic Function Panel [facility] Work Phone: Start: 11-22-2015 End: 11-08-2015 Lipid panel [AGGREGATE] *Lipid Profile CC PCP [facility] Work Phone: Start: 11-15-2015 End: 05-10-2016 *Hepatic Function Panel *Hepatic Function Panel [facility] Work Phone: Start: 11-15-2015 End: 11-15-2015 Follow Up Appt 6 months Follow Up Appt 6 months [facility] Work Phone: Start: 11-15-2015 End: 05-10-2016 Lipid panel [AGGREGATE] *Lipid Profile CC PCP [facility] Work Phone: Start: 11-15-2015 End: 11-15-2015 MMM MMM [facility] Work Phone: Start: 05-24-2015 End: 05-25-2015 *Hepatic Function Panel *Hepatic Function Panel [facility] Work Phone: Start: 05-24-2015 End: 05-24-2015 Ecg routine ecg w/least 12 lds w/i&r EKG (In office) [facility] Work Phone: Start: 05-24-2015 End: 05-24-2015 Follow Up Appt 6 months Follow Up Appt 6 months [facility] Work Phone: Start: 05-24-2015 End: 05-25-2015 Lipid panel [AGGREGATE] *Lipid Profile CC PCP [facility] Work Phone: Start: 05-24-2015 End: 05-24-2015 PFM PFM [facility] Work Phone: Start: 05-18-2015 End: 05-21-2015 *Hepatic Function Panel *Hepatic Function Panel [facility] Work Phone: Start: 05-18-2015 End: 05-21-2015 Lipid panel [AGGREGATE] *Lipid Profile CC PCP [facility] Work Phone: Start: 11-23-2014 End: 11-23-2014 Follow Up Appt 6 months Follow Up Appt 6 months [facility] Work Phone: Start: 11-23-2014 End: 11-23-2014 MMM MMM [facility] Work Phone: Start: 04-20-2014 End: 04-20-2014 Follow Up Appt 6 months Follow Up Appt 6 months [facility] Work Phone: Start: 04-20-2014 End: 04-20-2014 PFM PFM [facility] Work Phone: Start: 01-19-2014 End: 01-19-2014 Ecg routine ecg w/least 12 lds w/i&r EKG (In office) [facility] Work Phone: Start: 01-19-2014 End: 01-19-2014 Follow Up Appt 3 months Follow Up Appt 3 months [facility] Work Phone: Start: 01-19-2014 End: 01-19-2014 MMM MMM [facility] Work Phone: Start: 01-10-2014 End: 01-15-2014 *Hepatic Function Panel *Hepatic Function Panel [facility] Work Phone: Start: 01-10-2014 End: 01-15-2014 Lipid panel [AGGREGATE] *Lipid Profile CC PCP [facility] Work Phone: Start: 11-27-2013 End: 12-01-2013 Arterial exam Arterial exam [facility] Work Phone: Start: 11-27-2013 End: 11-27-2013 Cardiac Rehab Cardiac Rehab [facility] Work Phone: Start: 11-27-2013 End: 11-27-2013 Cardiovascular stress test using treadmill Treadmill stress test (no imaging) [facility] Work Phone: Start: 11-27-2013 End: 11-27-2013 Follow Up Appt 6 weeks Follow Up Appt 6 weeks [facility] Work Phone: Start: 11-27-2013 End: 11-27-2013 Follow Up Appt Other Follow Up Appt Other [facility] Work Phone: Start: 11-27-2013 End: 11-27-2013 PFM PFM [facility] Work Phone: Patient Education [facility] Work Phone: Additional Source Comments FOR RECORDS PERTAINING TO PATIENTS WHO ARE OR HAVE BEEN ENROLLED IN A CHEMICAL DEPENDENCY/SUBSTANCEABUSE PROGRAM, SOME INFORMATION MAY BE OMITTED. This clinical summary was aggregated from multiple sources. Caution should be exercised in using it in the provision of clinical care. This summary normalizes information from multiple sources, and as a consequence, information in this document may materially change the coding, format and clinical context of patient data. In addition, data may be omitted in some cases. CLINICAL DECISIONS SHOULD BE BASED ON THE PRIMARY CLINICAL RECORDS. [facility]. provides no warranty or guarantee of the accuracy or completeness of information in this document.
[2023-12-27 10:16] LABS: Ferritin 101 ng/mL (26-388); Iron 96 ug/dL (65-175); Iron Binding Capacity,Total 267 ug/dL (250-450)
== END | disposition home or self-care (01) ==
PROVIDERS: PCP Family Medicine; Visit Provider Family Medicine
DX: I10 Essential (primary) hypertension (principal); I48.91 Unspecified atrial fibrillation; D75.1 Secondary polycythemia; R73.02 Impaired glucose tolerance (oral)
CPT/HCPCS: 36415; 80053; 80061; 81001; 82728; 83036; 83540; 83550; 83735; 84443; 85025

== ENCOUNTER → 2024-04-23 | Outpatient (CLI) | payer MEDICARE, SELFPAY ==
[2024-04-23 09:31] LABS: Bacteria 0 SEEN /hpf (None Seen); Mucous, Urine 0 SEEN /hpf (<or=2+); Squamous Epithelial Cells - UA 0 SEEN /hpf (0-5); White Blood Cells 0 SEEN /hpf (0-5)
[2024-04-23 10:30] LABS: Color, Urine Yellow (Yellow); Glucose, Dipstick Normal (Normal); Ketone-Dipstick Negative (Negative); Leukocyte Esterase-Dipstick Negative /ul (Negative); Nitrite-Dipstick Negative (Negative); Occult Blood-Urine 10 /ul (Negative); Protein-Dipstick Negative (Negative); Urine Bilirubin Dipstick Negative (Negative); Urine Clarity Clear (Clear); Urine Urobilinogen Normal (Normal)
[2024-04-23 10:41] LABS: Red Blood Cells-Urine 0-5 SEEN /hpf (0-5)
[2024-04-23 12:26] LABS: Absolute Lymphocyte Count 1.51 X10^3/uL (0.83-4.51); Absolute Neutrophil Count 4.7 X10^3/uL (2.0-7.7); Basophil# 0.07 X10^3/uL; Eosinophil# 0.21 X10^3/uL; Hematocrit 51.7 % (40-54); Hemoglobin 17.2 g/dL (13.0-16.5); Lymphocyte # 1.51 X10^3/ul (0.83-4.51); Lymphocyte % 21.3 % (19-41); Mean Corp Hgb Conc 33.3 g/dL (32-36); Mean Corpuscular Volume 90.1 fL (80-94); Mean Platelet Vol. 9.6 fl (6.2-12.0); Monocyte# 0.58 X10^3/uL; Monocyte% 8.2 % (0-10); NRBC Flagged by Analyzer 0 % (0-5); Neutrophil # 4.69 X10^3/uL (2.7-7.7); Neutrophil % 66.1 % (47-70); Platelet Count 285 K/mm3 (150-450); RBC Distribution Width CV 13.1 % (11.6-14.6); RBC Distribution Width SD 42.7 fl (35.1-43.9); Red Blood Count 5.74 M/mm3 (4.6-6.2); White Blood Count 7.1 K/mm3 (4.4-11.0)
[2024-04-23 12:46] LABS: AST(SGOT) 21 U/L (15-37); Alanine Aminotransfer ALT/SGPT 29 U/L (16-61); Albumin, Serum 3.4 g/dL (3.2-5.0); Alkaline Phosphatase 101 U/L (45-117); Anion Gap 5 (5-15); BUN 20 mg/dL (7-18); BUN/Creat Ratio 17.2 RATIO (10-20); Calcium,Total 9.3 mg/dL (8.5-10.1); Chloride 107 mmol/L (98-107); Cholesterol 105 mg/dL (200); Creatinine, Serum 1.16 mg/dL (0.70-1.30); EST Glomerular Filtration Rate 67 mL/min (>60); Est Glom Filt Rate - Afr Amer 81 mL/min (>60); Globulin 3.3 g/dL (2.2-4.2); Glucose 114 mg/dL (74-106); High Density Lipoprotein 43 mg/dL; Magnesium 2.3 mg/dL (1.6-2.6); Potassium 4.4 mmol/L (3.5-5.1); Protein, Total 6.7 g/dL (6.4-8.2); Sodium Level 138 mmol/L (136-145); Thyroid Stim Hormone (TSH) 1.44 uIU/mL (0.358-3.74); Triglycerides 136 mg/dL; Very Low Density Lipoprotein 27 mg/dL (5-40)
[2024-04-23 13:45] LABS: Hemoglobin A1c 5.7 % (3.8-5.6)
== END | disposition home or self-care (01) ==
LOC: MFPLAB 09:29
PROVIDERS: PCP Family Medicine; Visit Provider Family Medicine
DX: I10 Essential (primary) hypertension (principal); R73.02 Impaired glucose tolerance (oral)
CPT/HCPCS: 36415; 80053; 80061; 81001; 83036; 83735; 84443; 85025

== ENCOUNTER 2025-01-11 06:28 | Inpatient (IN) | payer MEDICARE, SELFPAY ==
[2025-01-11] VITALS (17 sets, daily range): BP systolic 85–118; BP diastolic 58–85; PULSE 81–114; RESP 14–20; TEMP 36.6–37.6; O2SAT 92–98; BMI 31.1; BMI 31.6
[2025-01-11 07:31] LABS: Absolute Lymphocyte Count 0.74 X10^3/uL (0.83-4.51); Absolute Neutrophil Count 14.1 X10^3/uL (2.0-7.7); Basophil# 0.03 X10^3/uL; Basophil% 0.2 % (0-1); Hematocrit 53.6 % (40-54); Hemoglobin 18.7 g/dL (13.0-16.5); Lymphocyte # 0.74 X10^3/ul (0.83-4.51); Lymphocyte % 4.7 % (19-41); Mean Corp Hgb Conc 34.9 g/dL (32-36); Mean Corpuscular Hgb 30.7 pg (27.0-32.0); Mean Platelet Vol. 9.7 fl (6.2-12.0); Monocyte# 0.94 X10^3/uL; Monocyte% 5.9 % (0-10); NRBC Flagged by Analyzer 0 % (0-5); Neutrophil # 14.12 X10^3/uL (2.7-7.7); Neutrophil % 88.8 % (47-70); Platelet Count 301 K/mm3 (150-450); RBC Distribution Width CV 13.2 % (11.6-14.6); RBC Distribution Width SD 42.5 fl (35.1-43.9); Red Blood Count 6.09 M/mm3 (4.6-6.2); White Blood Count 15.9 K/mm3 (4.4-11.0)
[2025-01-11 07:36] LABS: Pathologist Review May foll
[2025-01-11 07:49] LABS: ALB/GLOB Ratio 1.3 RATIO (0.9-2.4); AST(SGOT) 24 U/L (<=37); Alanine Aminotransfer ALT/SGPT 16 U/L (<=46); Albumin, Serum 3.9 g/dL (3.4-4.8); Alkaline Phosphatase 88 U/L (40-129); Anion Gap 15 (5-15); BUN 18 mg/dL (4-19); BUN/Creat Ratio 16.1 RATIO (10-20); Calcium,Total 9.7 mg/dL (7.6-11.0); Carbon Dioxide 18.4 mmol/L (21.0-32.0); Chloride 100 mmol/L (98-108); Creatinine, Serum 1.09 mg/dL (0.70-1.20); EST Glomerular Filtration Rate 75 (>60); Globulin 3.1 g/dL (2.2-4.2); Glucose 145 mg/dL (70-99); Lipase 10 U/L (13-75); Potassium 4.1 mmol/L (3.3-5.1); Sodium Level 133 mmol/L (133-145); Total Bilirubin 2.07 mg/dL (0.00-1.30)
--- NOTE | 2025-01-11 08:00 | CT_ITS ---
PROCEDURE: CT abdomen pelvis without contrast. REASON FOR EXAM: 64-year-old male, epigastric, right upper quadrant abdominal pain. TECHNIQUE: Abdomen and pelvis CT without intravenous contrast. Coronal and Sagittal reconstruction series were provided. PATIENT PREPARATION: Per protocol ORAL CONTRAST TYPE: None. AMOUNT: mL One or more dose reduction techniques were used (e.g., Automated exposure control, adjustment of the mA and/or kV according to patient size, use of iterative reconstruction technique. COMPARISON: None. FINDINGS: Visualization is limited without the use of IV contrast. Lung bases: Linear atelectasis within the bilateral lungs. The heart is normal in size with coronary artery calcifications. Liver: The unopacified liver is normal in size. No biliary ductal dilation. Gallbladder: No radiopaque stones within the gallbladder. Spleen: Normal in size. Pancreas: Diffuse fatty atrophy. Adrenals: Unremarkable. Kidneys: Bilateral renal cysts and additional hypodensities. No hydronephrosis or nephrolithiasis. Bladder: Mildly distended and unremarkable. Reproductive Organs: Unremarkable. Bowel: The bowel loops are normal in caliber. There is wall thickening of the transverse colon and ascending colon within the right upper quadrant. The appendix is dilated measuring 1.5 cm, with a large calcified appendicolith. There is appendiceal wall thickening and diffuse adjacent stranding and small volume ascites. No perforation or free air. Lymph nodes: No lymphadenopathy. Vasculature: Mild calcific plaque of the aortoiliac vessels. Bones: Thoracolumbar spondylosis. Small bilateral fat containing inguinal hernias. CT/Abdomen/Pelvis without Cont IMPRESSION: Acute appendicitis. No evidence of perforation. Dr. Serrano discussed these findings with Dr. Monge via telephone at 9:10 a.m . on 01/11/2025. RADIATION DOSE SUMMARY: CTDlvol: 19 mGy DLP: 1000 mGycm Reading Location: [id number]
--- NOTE | 2025-01-11 08:00 | US_ITS ---
PROCEDURE: ABDOMEN LIMITED 01/11/2025 REASON FOR EXAM: RUQ PAIN TECHNIQUE: Real-time grayscale and color Doppler performed of the abdomen. FINDINGS: Liver is enlarged with length of 18.2 cm. Echogenicity is within normal limits. There is normal hepatopetal flow in the main portal vein. No intrahepatic or extrahepatic ductal dilatation. Gallbladder length is within normal limits at 8.5 cm. Sonographic Gunderson's sign is negative. No pericholecystic fluid. No gallstones identified. Pancreas is not well seen. Right kidney is normal in size, no calculi and normal cortical appearance. Right kidney measures 11.2 cm x 4.8 cm x 5.7 cm US/Abdomen Limited IMPRESSION: Hepatomegaly. No evidence of cholecystitis or significant renal pathology. Reading [facility]
--- NOTE | 2025-01-11 08:43 | EX.ED.DYSGE1 ---
HPI History of Present Illness Informant: patient and EMS Narrative Narrative: Patient is a 64-year-old male with past medical history of hypertension hyperlipidemia and paroxysmal atrial fibrillation currently on Eliquis. He states that on Sunday he had a sharp midepigastric abdominal pain that lasted for few minutes and resolved. He states that when it resolved it reduced to a dull ache which he was able to ignore and go about his day. He states then on Sunday he had an episode where he had sharp pain similar nature to the previous day but this was now located along the right lower quadrant. He also reports this lasted for a few minutes and then improved. However he then developed a repeat pain in the midepigastric region that was more intense and lasting longer than the previous episode and therefore with the recurrent bouts of pain he presents for evaluation. [facility] Medical History Neck pain Essential hypertension Knee pain Old myocardial infarction Hyperlipidemia Psoriasis Osteoarthritis Paroxysmal atrial fibrillation Atherosclerotic heart disease of [place] coronary artery without angina pectoris Home Medications ?Medication ?Instructions ?Recorded ?Last Taken ?Type aspirin 81 mg tablet,delayed 81 mg PO QDAY 05/16/18 Unknown History release magnesium aspart,citrate,oxide 250 mg PO DAILY 11/12/23 Unknown History (Triple Magnesium Complex) atorvastatin 40 mg tablet 40 mg PO QDAY #90 tabs 08/15/24 Unknown Rx lisinopril 10 mg tablet 10 mg PO DAILY #90 tabs 08/15/24 Unknown Rx apixaban 5 mg tablet (Eliquis) 5 mg PO BID #180 tabs 10/16/24 Unknown Rx metoprolol tartrate 50 mg tablet 50 mg PO BID #180 tabs 11/12/24 Unknown Rx Allergy/AdvReac Type Severity Reaction Status Date / Time cephalexin (From Keflex) Allergy Unknown Verified 12/15/24 09:17 Family History Father Cancer Lung CA, Bone CA Mother Cancer Breast CA Surgical History History of knee surgery Presence of stent in coronary artery (~11/2013) Postsurgical percutaneous transluminal coronary angioplasty (PTCA) status Social History (Updated 12/15/24 @ 09:20 by Ceci Rincon) Smoking Status: Current every day smoker quit status: not considering quitting alcohol intake: current alcohol intake frequency: a few times a week Alcohol type: beer substance use type: does not use caffeine: Yes Type: coffee Number of servings: 3 ROS ROS ED Constitutional Constitutional ED: Denies chills or fever(s) Eyes Eyes: Denies blurry vision or change in vision ENT ENT ED: Denies sore throat Cardiovascular Cardiovascular: Reports palpitations and racing heartbeat; Denies chest pain Respiratory/Chest Respiratory/Chest: Denies cough or dyspnea Gastrointestinal Gastrointestinal: Reports abdominal pain and nausea; Denies diarrhea or vomiting Genitourinary Genitourinary ED: Denies dysuria or hematuria Musculoskeletal Musculoskeletal: Denies myalgias Integumentary Denies rash Neurologic Neurologic: Denies headache(s) Hematologic/Lymphatic Hematologic/Lymphatic: Reports easy bleeding and easy bruising EXAM Physical Exam Const Positive well nourished, well developed and obese General Appearance ED: well developed Nutritional Appearance: obese HEENT HEENT Narrative: Normocephalic atraumatic Eyes PERRL and EOMs intact bilaterally General Eye ED: Negative for scleral icterus Neck supple Neck Narrative: No nuchal rigidity or meningeal signs noted Resp normal respiratory effort and clear to auscultation bilaterally Cardio regular rate Rate: other Other Details: Irregularly irregular rhythm with regular rate consistent with history of proximal atrial fibrillation Radial and carotid pulses are equal and symmetric GI non-distended and no masses GI Narrative: Abdomen is soft and nondistended with normal active bowel sounds. There is pain with palpation in the midepigastric region and right upper quadrant. Pain is greatest in the right upper quadrant with positive Gunderson sign No pulsatile mass or fluid wave No pain over McBurney's point Auscultation: normoactive bowel sounds Palpation: soft Back/Spine Back/Spine Narrative: Positive right CVA pain noted Extremity Extremity Narrative: +1-2 pitting edema to the bilateral lower extremities that is equal and symmetric and chronic per patient Negative Homans' sign bilaterally Neuro oriented x3, CN's II-XII intact bilaterally and no sensory deficits noted Sensorium / Orientation: alert Motor Exam: strength 5/5 throughout Psych mental status grossly normal Skin Skin Narrative: Patient has patches of psoriasis which are chronic in nature without secondary findings to suggest infection General Skin Exam: Negative for jaundice MDM MDM MDM Narrative Medical decision making narrative: Patient arrived to the ER in atrial fibrillation but he has a past medical history of this and is anticoagulated and therefore I have low concern regarding the A-fib. With pain in the midepigastric to right upper quadrant region there is concern for acute pancreatitis versus biliary colic versus acute cholecystitis. However as he also reported intermittent pain in the right flank/lower abdomen with a right CVA pain patient could have atypical presentation for kidney stone versus UTI or pyelonephritis. Secondary to his basic labs were obtained as well as a noncontrast CT to evaluate for potential stone and a gallbladder ultrasound for potential biliary colic or acute cholecystitis. The patient's white count is elevated at 15.9 with left shift as his neutrophils are elevated at 14.1 concerning for potential infection/acute cholecystitis. His total bilirubin is also elevated at 2.07 which is elevated by approximately a value of 1 from his previous labs. After receiving 500 mL of IV fluid as well as morphine and Zofran patient reported resolution of his pain. At this time his CT and ultrasound report are still pending. Based on his history and exam as well as elevated total bilirubin this is most likely cholelithiasis leading to acute cholecystitis. Patient will most likely need admitted and/or evaluated by general surgery. As the images are still pending the patient will be signed out to the day physician Dr. Edge for continued care History & Record Review Discussion w/independent historian: Patient Lab Data Attestation: I reviewed the patient's lab results. Labs: Laboratory Results - last 24 hr 01/11/25 07:00 WBC 15.9 H RBC 6.09 Hgb 18.7 H* Hct 53.6 MCV 88.0 MCH 30.7 MCHC 34.9 RDW Std Deviation 42.5 RDW Coeff of Abdiaziz 13.2 Plt Count 301 MPV 9.7 Immature Gran % (Auto) 0.400 Neut % (Auto) 88.8 H Lymph % (Auto) 4.7 L Rich % (Auto) 5.9 Eos % (Auto) 0.0 Baso % (Auto) 0.2 Absolute Neuts (auto) 14.1 H Absolute Lymphs (auto) 0.74 L Nucleated RBC % 0 Diff Path Review May foll Sodium 133 Potassium 4.1 Chloride 100 Carbon Dioxide 18.4 L Anion Gap 15 BUN 18 Creatinine 1.09 Est GFR (MDRD) Non-Af 75 BUN/Creatinine Ratio 16.1 Glucose 145 H Calcium 9.7 Total Bilirubin 2.07 H AST 24 ALT 16 Alkaline Phosphatase 88 Total Protein 7.0 Albumin 3.9 Globulin 3.1 Albumin/Globulin Ratio 1.3 Lipase 10 L Discharge Plan Triage ED Provider: Pepe Medrano Dx/Rx/DC Orders Clinical Impression: Essential hypertension, Paroxysmal atrial fibrillation, 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
[2025-01-11] MEDS: Piperacil/Tazobactam 3.375 GM in 0.9% Normal Saline (50mL MB+) 50 ML IV ×3 (09:49→21:04)
--- NOTE | 2025-01-11 10:10 | PCM.HP.STD ---
HPI - General General Date of Admission: 01/11/25 HPI Narrative PAT CONNOLLY, is a 64 M who presents with abdominal pain. His abdominal pain has been going on for 2 days. He denies nausea or vomiting or fevers or chills. Pain is in the right lower quadrant. It does not radiate. [facility] Medical History Neck pain Essential hypertension Knee pain Old myocardial infarction Hyperlipidemia Psoriasis Osteoarthritis Paroxysmal atrial fibrillation Atherosclerotic heart disease of [place] coronary artery without angina pectoris Home Medications ?Medication ?Instructions ?Recorded ?Last Taken ?Type aspirin 81 mg tablet,delayed 81 mg PO QDAY 05/16/18 01/11/25 History release magnesium aspart,citrate,oxide 250 mg PO DAILY 11/12/23 01/11/25 History (Triple Magnesium Complex) atorvastatin 40 mg tablet 40 mg PO QDAY #90 tabs 08/15/24 01/10/25 Rx lisinopril 10 mg tablet 10 mg PO DAILY #90 tabs 08/15/24 01/11/25 Rx apixaban 5 mg tablet (Eliquis) 5 mg PO BID #180 tabs 10/16/24 01/11/25 Rx metoprolol tartrate 50 mg tablet 50 mg PO BID #180 tabs 11/12/24 01/11/25 Rx acetaminophen 650 mg 1,300 mg PO Q12H PRN knee pain 01/11/25 01/11/25 History tablet,extended release Allergy/AdvReac Type Severity Reaction Status Date / Time cephalexin (From Keflex) Allergy Unknown Verified 12/15/24 09:17 Family History Father Cancer Lung CA, Bone CA Mother Cancer Breast CA Surgical History History of knee surgery Presence of stent in coronary artery (~11/2013) Postsurgical percutaneous transluminal coronary angioplasty (PTCA) status Social History (Updated 12/15/24 @ 09:20 by Ceci Rincon) Smoking Status: Current every day smoker tobacco type: cigarettes quit status: not considering quitting alcohol intake: current alcohol intake frequency: a few times a week Alcohol type: beer substance use type: does not use caffeine: Yes Type: coffee Number of servings: 3 Vital Signs Vital Signs Vital Signs: 01/11/25 09:10 01/11/25 09:57 Temperature 97.8 F 99.2 F H Temperature Source Temporal Oral Pulse Rate 110 H Respiratory Rate 16 Blood Pressure 118/76 Blood Pressure Mean 90 Blood Pressure Source Monitor Blood Pressure Position Semi-Fowlers Blood Pressure Location Left Arm Pulse Ox 95 Oxygen Delivery Method Room Air Room Air Weight Weight: 256 lb Body Mass Index (BMI) 31.1 Physical Exam Const oriented x3 and no apparent distress Resp normal respiratory effort Cardio regular rate and regular rhythm GI soft to palpation Palpation: tender RLQ Extremity normal to inspection Results Lab / Micro Data 01/11/25 07:00 01/11/25 07:00 Labs: Laboratory Results - last 24 hr 01/11/25 07:00: WBC 15.9 H, RBC 6.09, Hgb 18.7 H*, Hct 53.6, MCV 88.0, MCH 30.7, MCHC 34.9, RDW Std Deviation 42.5, RDW Coeff of Abdiaziz 13.2, Plt Count 301, MPV 9.7, Immature Gran % (Auto) 0.400, Neut % (Auto) 88.8 H, Lymph % (Auto) 4.7 L, [place] % (Auto) 5.9, Eos % (Auto) 0.0, Baso % (Auto) 0.2, Absolute Neuts (auto) 14.1 H, Absolute Lymphs (auto) 0.74 L, Nucleated RBC % 0, Diff Path Review February, Sodium 133, Potassium 4.1, Chloride 100, Carbon Dioxide 18.4 L, Anion Gap 15, BUN 18, Creatinine 1.09, Est GFR (MDRD) Non-Af 75, BUN/Creatinine Ratio 16.1, Glucose 145 H, Calcium 9.7, Total Bilirubin 2.07 H, AST 24, ALT 16, Alkaline Phosphatase 88, Total Protein 7.0, Albumin 3.9, Globulin 3.1, Albumin/Globulin Ratio 1.3, Lipase 10 L Imaging Radiology Impression Abdomen Ultrasound 01/11/25 08:00 IMPRESSION: Hepatomegaly. No evidence of cholecystitis or significant renal pathology. Reading [facility] Assessment & Plan Assessment/Plan (1) Acute appendicitis: PLAN: The patient had a CT scan that showed a acute appendicitis. The patient is on Eliquis for A-fib. I discussed laparoscopic appendectomy with the patient in detail. I discussed the risks of bleeding, infection, injury to surrounding organs such as the bowel, bladder, ureter. I also discussed the increased risk of bleeding due to his Eliquis. Patient agrees to proceed with laparoscopic appendectomy. Keyur Kim MD Pager: [facility] [address] [place] [address] [address] [place] [address] Office:
--- NOTE | 2025-01-11 10:14 | NURSING ---
downtime documentation 01/11/25 12am until 7am
--- NOTE | 2025-01-11 10:34 | PCM.PRE.AN2 ---
ASA Classification* ASA Classification ASA Classification: 3 and E Assessment & Plan Anesthesia* Anesthesia Assessment Anesthesia Assessment: Discussed sedation and/or anesthesia options, risks, benefits, and alternatives with patient/parents/legal guardian/POA. Questions invited. The patient/parents/legal guardian/POA seems to understand and agrees to proceed with anesthesia plan. Reviewed the physical assessment, medical history, allergy history and patient home medications list prior to surgery/procedure/anesthetic and documented any changes. Performed airway and anesthesia risk assessments. Anesthesia Type Anesthesia Type: General Anesthesia Focused Assessment* Temperature: 99.2 F Pulse Rate: 110 Blood Pressure: 118/76 Respiratory Rate: 16 Pulse Ox: 95 Airway Assessment Mouth opens: >3 cm Mallampati Score: III Focused Labs Anesthesia Preop lab: CBC WBC 15.9 K/mm3 (4.4-11.0) H 01/11/25 07:00 01/11/25 RBC 6.09 M/mm3 (4.6-6.2) 01/11/25 07:00 01/11/25 Hgb 18.7 g/dL (13.0-16.5) H* 01/11/25 07:00 01/11/25 Hct 53.6 % (40-54) 01/11/25 07:00 01/11/25 Plt Count 301 K/mm3 (150-450) 01/11/25 07:00 01/11/25 CHEMISTRY Potassium 4.1 mmol/L (3.3-5.1) 01/11/25 07:00 01/11/25 Sodium 133 mmol/L (133-145) 01/11/25 07:00 01/11/25 Magnesium 2.3 mg/dL (1.6-2.6) 04/23/24 09:29 04/23/24 BUN 18 mg/dL (4-19) 01/11/25 07:00 01/11/25 Creatinine 1.09 mg/dL (0.70-1.20) 01/11/25 07:00 01/11/25 Glucose 145 mg/dL (70-99) H 01/11/25 07:00 01/11/25 TSH 1.44 uIU/mL (0.358-3.74) 04/23/24 09:29 04/23/24 COAG PT 12.8 SECONDS (11.9-14.4) 11/20/13 14:00 11/20/13 Pre-Assessment Diagnosis/Proposed Procedure Planned Operative Procedure(s): lap appy Anesthesia History 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 When Was Last Pacemaker Check QUESTION #4 FULL TEXT: You/Your Family Experience fever (hyperthermia) with Anesthesia Last Oral Intake Last Oral intake: Last Oral Intake NPO since 05:00 01/11/25 09:57 Meds taken in AM with sips of water? Meds patient instructed to water around 0500. no food 01/11/25 09:57 take am of surgery since last night took eliquis this am PONV PONV - heel room supervisor: PONV - heel room supervisor Female HX of Motion Sickness HX of N/V After Surgery Non-Smoker Duration of Surgery greater than 60 minutes Number of Risk Factors PONV Score Height & Weight Height & Weight: Anesthesia: Height & Weight Height 6 ft 4 in 01/11/25 09:57 Weight: 116.12 kg 01/11/25 09:57 Body Mass Index (BMI) 31.1 01/11/25 09:57 Respiratory Assessment Respiratory Assessment - heel room supervisor: Respiratory Tract Infection Hx - heel room supervisor Hx Respiratory Tract Infection No 01/11/25 09:57 STOP Sleep Apnea STOP Sleep Apnea - heel room supervisor: STOP Sleep Apnea - heel room supervisor Hx Hypertension Yes 01/11/25 09:57 Hx Sleep Apnea No 01/11/25 09:57 CPAP No 11/20/13 15:42 BIPAP No 11/20/13 15:42 Do you snore loudly (louder No 01/11/25 09:57 than talking or can be heard Do you often feel tired/ No 01/11/25 09:57 fatigued/ sleepy during daytime? Has anyone observed you stop No 01/11/25 09:57 breathing during sleep? STOP Results Negative 01/11/25 09:57 QUESTION #5 FULL TEXT : Do you snore loudly (louder than talking or can be heard through closed doors)? Tobacco Use History Tobacco Use History - heel room supervisor: Tobacco Use History - heel room supervisor Tobacco Use Smoking Status Current every day smoker 01/11/25 09:10 Hx Tobacco Use Yes 11/20/13 15:42 Years Smoking Packs Smoked per Day Smoking Cessation Date was within the last 15 years Hx Smoking Cessation Date Hx Smoking Cessation No 01/11/25 09:10 Counseling Hematologic Medial History Hematologic Hx - heel room supervisor: Hematologic Medical Hx - outside sales Hx of Blood Transfusion Hx of Transfusion in last 3 Months Date of Last Transfusion (if within last 3 months) Ever experience any problems with transfusion(s)? Specify any problems Hx of Preganancy in last 3 Months Nurse Filling Out Transfusion & Questions: Date: Time: Patient unable to answer at this time (ie. confused, unrespo /Reproduction History /Reproductive History - heel room supervisor: /Reproductive Hx- heel room supervisor Hx Now Gestational Age (in weeks): EDC: Hx Hx Para Hx Section SAB PFSH Medical History Neck pain Essential hypertension Knee pain Old myocardial infarction Hyperlipidemia Psoriasis Osteoarthritis Paroxysmal atrial fibrillation Atherosclerotic heart disease of [place] coronary artery without angina pectoris Home Medications ?Medication ?Instructions ?Recorded ?Last Taken ?Type aspirin 81 mg tablet,delayed 81 mg PO QDAY 05/16/18 01/11/25 History release magnesium aspart,citrate,oxide 250 mg PO DAILY 11/12/23 01/11/25 History (Triple Magnesium Complex) atorvastatin 40 mg tablet 40 mg PO QDAY #90 tabs 08/15/24 01/10/25 Rx lisinopril 10 mg tablet 10 mg PO DAILY #90 tabs 08/15/24 01/11/25 Rx apixaban 5 mg tablet (Eliquis) 5 mg PO BID #180 tabs 10/16/24 01/11/25 Rx metoprolol tartrate 50 mg tablet 50 mg PO BID #180 tabs 11/12/24 01/11/25 Rx acetaminophen 650 mg 1,300 mg PO Q12H PRN knee pain 01/11/25 01/11/25 History tablet,extended release Allergy/AdvReac Type Severity Reaction Status Date / Time cephalexin (From Keflex) Allergy Unknown Verified 12/15/24 09:17 Family History Father Cancer Lung CA, Bone CA Mother Cancer Breast CA Surgical History History of knee surgery Presence of stent in coronary artery (~11/2013) Postsurgical percutaneous transluminal coronary angioplasty (PTCA) status Social History (Updated 12/15/24 @ 09:20 by Ceci Rincon) Smoking Status: Current every day smoker tobacco type: cigarettes quit status: not considering quitting alcohol intake: current alcohol intake frequency: a few times a week Alcohol type: beer substance use type: does not use caffeine: Yes Type: coffee Number of servings: 3 Review of Systems (Anesthesia) ROS Narrative System reviewed and no additional complaints, except as documented.
[2025-01-11] MEDS: Bupiv/Epi 0.25% 30 ML Vial (11:57)
--- NOTE | 2025-01-11 12:17 | PCM.POST.ANE ---
Anesthesia: Postop Eval I Current Vital Signs Temperature: 99.6 F Pulse Rate: 106 Blood Pressure: 85/58 Respiratory Rate: 14 Pulse Ox: 94 Assessment Airway patent: Yes Spontaneous unlabored respirations: Yes nausea: No Vomiting: No Anesthesia Complication: No Fluid Hydration Crystalloid volume administer (ml): 1,400 Total IV fluid infused: 1,400 Progress Note Anesthesia document: Postop Eval 1 completed: Yes
--- NOTE | 2025-01-11 12:17 | PCM.OPRPT ---
Operative Report (Standard) Operative Information Date of Procedure: 01/11/25 Pre-Operative Diagnosis: Acute appendicitis Post-Operative Diagnosis: Acute appendicitis with peritonitis and gangrene and perforation Surgery/Procedure Performed: Laparoscopic appendectomy o and m supervisor: No Type of Anesthesia: General/Regional RN Documented Start/Stop Times: Operation Date: 01/11/25 12:05 Case Time Anesthesia Start 01/11/25 10:56 Into Room 01/11/25 10:56 Procedure Start 01/11/25 11:21 Procedure End 01/11/25 12:03 Anesthesia End 01/11/25 12:11 Out of Room 01/11/25 12:11 Into Recovery 01/11/25 12:15 Procedure Start Time: 11:21 Procedure Stop Time: 12:03 Select all DRAINS/GRAFTS/IMPLANTS that apply: Drains Drain details: MICHAEL to bulb suction Estimated Blood Loss: 10 Specimen collected: Yes Description of specimen(s) removed: Appendix Description of surgery: The patient was brought into the operating room and general anesthesia was induced. The left arm was tucked and the abdomen was prepped and draped in usual sterile fashion. A small midline incision was made superior to the umbilicus and deepened to the level of the fascia. The fascia was elevated and incised. The peritoneum was also elevated and incised. A finger sweep was performed and a balloon trocar was placed into the abdomen and inflated. The abdomen was insufflated to 15 mmHg and the camera was inserted and the abdomen was inspected for any injuries upon entering the abdomen. There were none. The patient was placed in Trendelenburg position and a 5 mm ports placed in the left lower quadrant and suprapubic areas under direct visualization. There was purulent material throughout the abdomen with peritonitis next using atraumatic bowel graspers the appendix was identified. The appendix was tightly adherent to the cecum and it was necrotic and gangrenous. It was black in color. The appendix was grasped and elevated and Enseal was used to take down the mesoappendix into dissected away from the colon. A stapler was used to come across the base of the appendix. The appendix was then placed in Endo Catch bag and removed through the umbilical incision. The staple line was inspected and found to be hemostatic and intact. The 2 5 mm ports are removed under direct visualization. The balloon trocar was deflated and removed and all the air was removed from the abdomen. The umbilical incision fascia was closed with an 0 Vicryl [id number] suture. The incisions were then irrigated with saline and dried. Local anesthetic was injected into the incision sites. The skin incisions were then closed with interrupted 4-0 Monocryl suture and Steri-Strips. Bandages were applied and the patient was awoken and taken to PACU in stable condition. Patient tolerated the procedure well. Surgical Findings: Wound class IV Complications Complications: No Admit VTE Documentation VTE Mechan Device Prophylaxis: SCD's
--- NOTE | 2025-01-11 12:18 | PCM.POSTANE2 ---
Anesthesia Postop Eval I Sum Postop Eval Completion status Anesthesia document: Postop Eval 1 completed: Yes Anesthesia Postop Eval I Summary Anesthesia Postop Eval I Summary: Anesthesia Postop Eval I: Assessment Summary Airway patent Yes 01/11/25 12:17 Spontaneous unlabored Yes 01/11/25 12:17 respirations Mental status nausea No 01/11/25 12:17 Vomiting No 01/11/25 12:17 Anesthesia Postop Eval I: Fluid Summary Crystalloid volume administer 1,400 01/11/25 12:17 (ml) Colloids volume administered ( ml) Blood Product volume administered (ml) Total IV fluid infused 1,400 01/11/25 12:17 Anesthesia Postop Eval I: Summary Notes Anesthesia Complication No 01/11/25 12:17 Anesthesia Complication Comment: Post-operative progress note Anesthesia: Postop Eval II Evaluation Mental status: Awake Pain Level: 0 nausea: No Vomiting: No
[2025-01-11] MEDS: 0.9% Normal Saline (1000mL) 1,000 ML 125 ML IV ×2 (12:34→15:50)
--- NOTE | 2025-01-11 12:40 | SUR.PHASEI ---
METORPROLOL 5 MG GIVEN IV FOR HEART RATE 120-130'S PER DR. VILLALTA'S ONE TIME PACU ORDER.
--- NOTE | 2025-01-11 12:45 | SUR.PHASEI ---
LAB CAME AND NICOLE THE PATIENT'S LACTIC ACID.
[2025-01-11 13:19] LABS: Lactic Acid 1.9 mmol/L (0.0-2.0)
[2025-01-11] MEDS: 0.9% Normal Saline (100mL Bag) 100 ML 15 ML IV (14:00)
[2025-01-11] MEDS: Ketorolac 15 MG/ML Vial IV (15:50)
[2025-01-11] MEDS: Morphine 2 MG/ML Syringe IV (21:19)
[2025-01-12] VITALS (8 sets, daily range): BP systolic 101–133; BP diastolic 61–81; PULSE 91–126; RESP 16–17; TEMP 36.4–37.2; O2SAT 92–99
[2025-01-12] MEDS: Ketorolac 15 MG/ML Vial IV ×3 (00:17→16:12)
[2025-01-12] MEDS: 0.9% Normal Saline (1000mL) 1,000 ML 125 ML IV ×2 (00:26→08:11)
[2025-01-12] MEDS: Piperacil/Tazobactam 3.375 GM in 0.9% Normal Saline (50mL MB+) 50 ML IV ×3 (04:12→19:57)
[2025-01-12] MEDS: 0.9% Normal Saline (100mL Bag) 100 ML 15 ML IV (04:12)
[2025-01-12] MEDS: Morphine 2 MG/ML Syringe IV (04:16)
[2025-01-12 07:24] LABS: Absolute Lymphocyte Count 0.82 X10^3/uL (0.83-4.51); Absolute Neutrophil Count 10.4 X10^3/uL (2.0-7.7); Basophil# 0.03 X10^3/uL; Basophil% 0.3 % (0-1); Hematocrit 46.8 % (40-54); Hemoglobin 15.9 g/dL (13.0-16.5); Lymphocyte # 0.82 X10^3/ul (0.83-4.51); Lymphocyte % 6.9 % (19-41); Mean Corpuscular Hgb 30.8 pg (27.0-32.0); Mean Corpuscular Volume 90.5 fL (80-94); Mean Platelet Vol. 9.6 fl (6.2-12.0); Monocyte# 0.58 X10^3/uL; Monocyte% 4.9 % (0-10); NRBC Flagged by Analyzer 0 % (0-5); Neutrophil # 10.42 X10^3/uL (2.7-7.7); Neutrophil % 87.1 % (47-70); Platelet Count 182 K/mm3 (150-450); RBC Distribution Width CV 13.8 % (11.6-14.6); RBC Distribution Width SD 46.2 fl (35.1-43.9); Red Blood Count 5.17 M/mm3 (4.6-6.2)
--- NOTE | 2025-01-12 07:48 | PCM.PN.SRG ---
Subjective Subjective Patient reports he is feeling better than yesterday. He denies nausea or vomiting. He is not passing flatus yet. Objective Data Objective Data Vital Signs: Vital Signs Temp Pulse Resp BP Pulse Ox O2 Del Method O2 Flow Rate 98.3 F 104 H 17 101/68 92 Room Air 1.5 01/12/25 01:05 01/12/25 04:14 01/12/25 01:05 01/12/25 01:05 01/12/25 01:05 01/12/25 01:05 01/11/25 15:45 Oxygen Flow Rate (L/min) 1.5 Oxygen Delivery Method Room Air Weight: 259 lb 14.4 oz Body Mass Index (BMI) 31.6 Intake & Output: Intake and Output for Last 24 Hours 01/10/25 01/11/25 01/12/25 23:59 23:59 23:59 Intake Total 2532.33 / 2532.33 50 / 50 Output Total 136 / 136 550 / 550 Balance 2396.33 / 2396.33 -500 / -500 Lab / Micro Data 01/12/25 07:04 01/11/25 07:00 Labs: Laboratory Results - last 24 hr 01/11/25 07:00: WBC 15.9 H, RBC 6.09, Hgb 18.7 H*, Hct 53.6, MCV 88.0, MCH 30.7, MCHC 34.9, RDW Std Deviation 42.5, RDW Coeff of Abdiaziz 13.2, Plt Count 301, MPV 9.7, Immature Gran % (Auto) 0.400, Neut % (Auto) 88.8 H, Lymph % (Auto) 4.7 L, Emmet % (Auto) 5.9, Eos % (Auto) 0.0, Baso % (Auto) 0.2, Absolute Neuts (auto) 14.1 H, Absolute Lymphs (auto) 0.74 L, Nucleated RBC % 0, Diff Path Review May foll, Sodium 133, Potassium 4.1, Chloride 100, Carbon Dioxide 18.4 L, Anion Gap 15, BUN 18, Creatinine 1.09, Est GFR (MDRD) Non-Af 75, BUN/Creatinine Ratio 16.1, Glucose 145 H, Calcium 9.7, Total Bilirubin 2.07 H, AST 24, ALT 16, Alkaline Phosphatase 88, Total Protein 7.0, Albumin 3.9, Globulin 3.1, Albumin/Globulin Ratio 1.3, Lipase 10 L 01/11/25 12:45: Lactic Acid 1.9 01/12/25 07:04: WBC 12.0 H, RBC 5.17, Hgb 15.9, Hct 46.8, MCV 90.5, MCH 30.8, MCHC 34.0, RDW Std Deviation 46.2 H, RDW Coeff of Abdiaziz 13.8, Plt Count 182, MPV 9.6, Immature Gran % (Auto) 0.800, Neut % (Auto) 87.1 H, Lymph % (Auto) 6.9 L, Emmet % (Auto) 4.9, Eos % (Auto) 0.0, Baso % (Auto) 0.3, Absolute Neuts (auto) 10.4 H, Absolute Lymphs (auto) 0.82 L, Nucleated RBC % 0 Radiography Diagnostic Testing: Radiology Impression Abdomen Ultrasound 01/11/25 08:00 IMPRESSION: Hepatomegaly. No evidence of cholecystitis or significant renal pathology. Reading Location: [facility] Abdomen/Pelvis CT 01/11/25 08:00 IMPRESSION: Acute appendicitis. No evidence of perforation. Dr. Serrano discussed these findings with Dr. Monge via telephone at 9:10 a.m. on 01/11/2025. RADIATION DOSE SUMMARY: CTDlvol: 19 mGy DLP: 1000 mGycm Reading Location: [facility] Physical Exam Const oriented x3 and no apparent distress Resp normal respiratory effort GI soft to palpation Palpation: tender Assessment & Plan Assessment/Plan (1) Acute appendicitis: PLAN: Patient had perforated appendicitis with gangrene. Drain is serosanguineous today. Keep n.p.o. until passing flatus. Continue antibiotics. Keyur Kim MD Pager: [facility] [address] [place] [address] Out[address] Pavilion, [address] [place] [address] Office:
[2025-01-12 07:52] LABS: Anion Gap 10 (5-15); BUN 30 mg/dL (4-19); Calcium,Total 8.5 mg/dL (7.6-11.0); Carbon Dioxide 18.8 mmol/L (21.0-32.0); Chloride 106 mmol/L (98-108); Creatinine, Serum 1.26 mg/dL (0.70-1.20); EST Glomerular Filtration Rate 63 (>60); Estimated Creatinine Clearance 80.95 ml/min (50-250); Glucose 88 mg/dL (70-99); Potassium 4.5 mmol/L (3.3-5.1); Sodium Level 135 mmol/L (133-145)
[2025-01-12] MEDS: Metoprolol Tartrate 50 MG Tablet PO ×2 (07:54→19:57)
--- NOTE | 2025-01-12 10:37 | CASEMGMT ---
JAYASHREE ESCOTO Assessment Face to Face with patient for initial transition planning/care coordination assessment. JAYASHREE ESCOTO introduced self and role at [facility], pt voices understanding. Pt is A&Ox4 and is resting comfortably in bed and is calm. Care providers, pharmacy, and demographics verified. Admitting dx: Acute Appendicitis LACE Strata: 1 PCP: Markus Gunter Specialists: KUNAL (Rufino) Preferred Pharmacy: [facility] Insurance: [facility] Prescription Benefit: Yes LNOK: Massiel Mack (Sister) Living Arrangements: Pt lives alone in a single story home with 2 steps to enter ADLs/IADLs: Ind Transportation: Self, sister. denies needs DME: Denies all DME uses or needs. However, pt is currently requiring additional oxygen and may qualify for home oxygen use. A verbal list of local in-network DME companies were provided to the pt at this time. Pt prefers [facility]. HHC/SNF: Denies Hx or needs Pt?s goal: Home Plan: Home, anticipate no needs. 6-Click score is 24. Pt denies the need for HH or OP Tx. Pt states that he feels safe returning home alone once he is medically ready and denies further questions or concerns at this time. Maame Archer RN, CM
--- NOTE | 2025-01-12 12:05 | APP_PTH ---
PATIENT: PAT CONNOLLY LOC: [facility]3 U#:[id number] AGE/SX: 64/M ROOM: [place]317 RE01/11/[address]: Dr. Keyur Kim MD : [id number] BED: 1 DIS: 01/16/2025 SPEC #: [id number] RECD: 01/12/25 13:31 STATUS: BEN HERNANDEZ #: [id number] ROMAN: 01/12/25 12:[address]: Keyur Kim DEPT: SURGICAL PATHOLOGY RECD BY: Cole Zavaleta ENTERED: 01/12/25 13:31 SP TYPE: APPENDIX OTHR DR: Dr. Markus Gunter MD Tissues: A - Appendix, NOS Procedures: Surgery Specimen Level III HEADER OPERATION: Laparoscopic appendectomy PRE-OP DIAGNOSIS: Acute appendicitis TISSUE SUBMITTED: A- Appendix MICROSCOPIC DIAGNOSIS A. Appendix, Laparoscopic Appendectomy: * Acute appendicitis with perforation. * Acute periappendicitis. MICROSCOPIC DESCRIPTION Slides are reviewed. GROSS DESCRIPTION A. Received in formalin in a container labeled with the patient's name, date of , and appendix is a previously disrupted and shaggy appendectomy specimen measuring 6.1 cm in length with an average diameter 0.7 cm. The serosa is briggs-brown with multiple shaggy defects scattered throughout. 1 aspect exhibits a linear line of yan, grossly consistent with resection margin (inked black). The opposing surface exhibits a secondary line of linear yan at the edge with a possible previously disrupted tip (area of yan inked green). Serial sections reveal a lumen ranging from 0.1 to 0.4 cm filled with a thick brown fecal material. The wall thickness ranges from 0.1 to 0.3 cm with multiple transmural defects. Attached to the possible tip is a 4.7 x 2.5 x 1.0 cm fragment of brown mesoappendix. Sectioning reveals possible necrosis. 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 [facility] 01-12-2025 CPT:24589
[2025-01-12] MEDS: Pantoprazole Sodium 40 MG in 0.9% Normal Saline (100mL MB+) 100 ML 330 MG IV (12:13)
[2025-01-12] MEDS: 0.9% Saline Lock 10 ML Syringe IV (16:16)
[2025-01-12] MEDS: Atorvastatin Calcium 40 MG Tablet PO (19:57)
[2025-01-13] VITALS (22 sets, daily range): BP systolic 123–151; BP diastolic 74–95; PULSE 90–170; RESP 14–18; TEMP 36.6–37.1; O2SAT 94–97
[2025-01-13] MEDS: 0.9% Normal Saline (100mL Bag) 100 ML 15 ML IV (02:42)
[2025-01-13] MEDS: Ketorolac 15 MG/ML Vial IV (02:42)
[2025-01-13] MEDS: 0.9% Normal Saline (1000mL) 1,000 ML 125 ML IV ×3 (02:49→14:11)
[2025-01-13] MEDS: Piperacil/Tazobactam 3.375 GM in 0.9% Normal Saline (50mL MB+) 50 ML IV ×3 (05:55→21:19)
[2025-01-13 06:47] LABS: Absolute Lymphocyte Count 0.57 X10^3/uL (0.83-4.51); Absolute Neutrophil Count 11.7 X10^3/uL (2.0-7.7); Basophil# 0.02 X10^3/uL; Basophil% 0.2 % (0-1); Hematocrit 47.4 % (40-54); Hemoglobin 15.9 g/dL (13.0-16.5); Lymphocyte # 0.57 X10^3/ul (0.83-4.51); Lymphocyte % 4.3 % (19-41); Mean Corp Hgb Conc 33.5 g/dL (32-36); Mean Corpuscular Hgb 30.3 pg (27.0-32.0); Mean Corpuscular Volume 90.3 fL (80-94); Monocyte# 0.78 X10^3/uL; Monocyte% 5.9 % (0-10); NRBC Flagged by Analyzer 0 % (0-5); Neutrophil # 11.68 X10^3/uL (2.7-7.7); Neutrophil % 88.6 % (47-70); POSITIVE DIFFERENTIAL YES; Platelet Count 203 K/mm3 (150-450); RBC Distribution Width CV 13.8 % (11.6-14.6); RBC Distribution Width SD 45.9 fl (35.1-43.9); Red Blood Count 5.25 M/mm3 (4.6-6.2); White Blood Count 13.2 K/mm3 (4.4-11.0)
[2025-01-13] MEDS: Metoprolol Tartrate 50 MG Tablet PO (07:07)
[2025-01-13 07:14] LABS: Anion Gap 14 (5-15); BUN 30 mg/dL (4-19); BUN/Creat Ratio 27.9 RATIO (10-20); Calcium,Total 8.9 mg/dL (7.6-11.0); Carbon Dioxide 16.7 mmol/L (21.0-32.0); Chloride 107 mmol/L (98-108); Creatinine, Serum 1.08 mg/dL (0.70-1.20); EST Glomerular Filtration Rate 76 (>60); Estimated Creatinine Clearance 94.44 ml/min (50-250); Glucose 107 mg/dL (70-99); Potassium 4.3 mmol/L (3.3-5.1); Sodium Level 138 mmol/L (133-145)
--- NOTE | 2025-01-13 08:22 | EKG12_ITS ---
Test Reason : TACHY Blood Pressure : */* mmHG Vent. Rate : 130 BPM Atrial Rate : * BPM P-R Int : * ms QRS Dur : 94 ms QT Int : 272 ms P-R-T Axes : * -24 45 degrees QTcB Int : 400 ms Atrial fibrillation with rapid ventricular response Abnormal ECG When compared with ECG of 21-Nov-2013 05:30, Atrial fibrillation has replaced Sinus rhythm Vent. rate has increased by 63 bpm T wave inversion no longer evident in Inferior leads Confirmed by Tony Sharpe ([id number]), scientific editor HARRIET MALDONADO ([id number]) on 01/14/2025 7:58:23 AM Referred By: JOSE Confirmed By: Tony Sharpe
[2025-01-13] MEDS: Metoprolol Tartrate 5 MG/5 ML Vial IV ×3 (08:36→17:32)
[2025-01-13] MEDS: Pantoprazole Sodium 40 MG in 0.9% Normal Saline (100mL MB+) 100 ML 330 MG IV (08:54)
[2025-01-13] MEDS: Lisinopril 10 MG Tablet PO (08:57)
[2025-01-13 09:00] LABS: Troponin T High Sensitivity 7 ng/L (<=22)
[2025-01-13 10:54] LABS: Troponin T High Sens 2 HR 7 ng/L (<=22)
[2025-01-13] MEDS: 0.9% Saline Lock 10 ML Syringe IV ×4 (11:21→17:33)
[2025-01-13] MEDS: APIXABAN 5 MG TABLET PO ×2 (11:30→21:11)
--- NOTE | 2025-01-13 12:40 | PCM.CONS.GEN ---
Assessment & Plan Assessment/Plan (1) Acute appendicitis: (2) Paroxysmal atrial fibrillation with RVR: PLAN: Plan This 64-year-old gentleman being admitted surgical service for acute complicated complicated appendicitis with perforation and gangrene resulting into peritonitis Patient developed A-fib RVR with history of paroxysmal A-fib. 1. A-fib RVR probably precipitated by surgical distress: Twelve-lead EKG shows A-fib RVR rate 130 bpm. QTc 400 ms. Previous EKG of December 15, 2024 shows NSR 72 bpm. 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 At home, he is on metoprolol 50 mg p.o. twice daily, apixaban 5 mg twice daily and baby aspirin. Eliquis is already resumed. On metoprolol 5 mg IV every 6 hourly. Patient is still n.p.o. and bowel function is compromised therefore Cardizem 15 mg x 1 given heart rate slowed down from 130s to 90s per hour. Repeat EKG shows A-fib at 94 beats minute. Second dose of Cardizem 15 mg ordered. Last echo shows EF 55% PASP 35 mmHg, right atrium moderately large. Stage II distal dysfunction therefore suggestive of chronic HFpEF 2. Chronic HFpEF: Patient not in fluid overload. Patient already positive fluid balance about 6.2 L. Decrease IV fluid from 125 mL/h to 75/h. 3. Acute complicated appendicitis with perforation and gangrene and peritonitis: Patient has MICHAEL drain. Still NPO. Patient has mild metabolic acidosis, bicarb 16. Sodium and potassium normal. Will change the IV fluid, normal saline to Ringer lactate. As per surgeons recommendation Patient admitted to criteria for septic shock most likely due to UTI although colonic ileus is also on consideration. Patient has evidence of endorgan dysfunction including persistent hypotension requiring vasopressor, lactic acidosis, acute hypoxic respiratory failure and SUNDAR on CKD HPI Consult Data Date of Consult: 01/13/25 HPI Narrative Reason for Consultation: A-fib RVR HPI Narrative: PAT CONNOLLY, is a 64 M who is being admitted under surgical condition for acute complicated appendicitis with peritonitis, gangrene and perforation that required laparoscopic appendectomy. Patient has MICHAEL drain In the morning today, patient had a fever RVR heart rate going 120 to 130-minute. Twelve-lead EKG reviewed. Patient himself does not have symptoms of tachycardia, chest pain pressure tightness or shortness of breath but he feels irregular heartbeat. Denies abdominal pain. Has not passed flatus or BM yet. No fever/URI symptoms or dysuria or lower urine tract symptoms. No nausea or vomiting. [facility] Medical History Neck pain Essential hypertension Knee pain Old myocardial infarction Hyperlipidemia Psoriasis Osteoarthritis Paroxysmal atrial fibrillation Atherosclerotic heart disease of [place] coronary artery without angina pectoris Home Medications ?Medication ?Instructions ?Recorded ?Last Taken ?Type aspirin 81 mg tablet,delayed 81 mg PO QDAY 05/16/18 01/11/25 History release magnesium aspart,citrate,oxide 250 mg PO DAILY 11/12/23 01/11/25 History (Triple Magnesium Complex) atorvastatin 40 mg tablet 40 mg PO QDAY #90 tabs 08/15/24 01/10/25 Rx lisinopril 10 mg tablet 10 mg PO DAILY #90 tabs 08/15/24 01/11/25 Rx apixaban 5 mg tablet (Eliquis) 5 mg PO BID #180 tabs 10/16/24 01/11/25 Rx metoprolol tartrate 50 mg tablet 50 mg PO BID #180 tabs 11/12/24 01/11/25 Rx acetaminophen 650 mg 1,300 mg PO Q12H PRN knee pain 01/11/25 01/11/25 History tablet,extended release Allergy/AdvReac Type Severity Reaction Status Date / Time cephalexin (From Keflex) Allergy Unknown Verified 12/15/24 09:17 Family History Father Cancer Lung CA, Bone CA Mother Cancer Breast CA Surgical History History of knee surgery Presence of stent in coronary artery (~11/2013) Postsurgical percutaneous transluminal coronary angioplasty (PTCA) status Social History (Updated 12/15/24 @ 09:20 by Ceci Rincon) Smoking Status: Current every day smoker tobacco type: cigarettes quit status: not considering quitting alcohol intake: current alcohol intake frequency: a few times a week Alcohol type: beer substance use type: does not use caffeine: Yes Type: coffee Number of servings: 3 ROS ROS Narrative Constitutional: Reports fatigue and weakness. No fever. HEENT: Reports systems reviewed and no addt'l complaints, except as documented Respiratory/Chest: No acute shortness of breath or respiratory distress or wheezing. CVS: A-fib RVR. No chest pain pressure or tightness Gastrointestinal: Recent abdominal surgery, appendectomy. MICHAEL drain Genitourinary: Denies burning urination or new urinary tract symptoms Musculoskeletal: Denies acute joint pain or limited range of motion. No acute injury Neurologic: Denies seizure-like symptoms. skin: No ulcer. No rash Endocrinology: Reports systems reviewed and no addt'l complaints, except as documented Hematologic/Lymphatic: Reports systems reviewed and no addt'l complaints, except as documented Rest 14 ROS are negative except as mentioned in HPI Physical Exam Narrative General: Alert, Oriented x3, Cooperative HEENT: Atraumatic, PERRLA, EOMI, Normocephalic Oral: No Gingival or Mucosal Lesions/ Ulcerations Neck: Supple, No JVD, Negative Carotid Bruits Chest wall/Lungs: Air entry diminished in bilateral lung bases. No crepitation/rhonchi Cardiovascular: A-fib RVR, Normal S1, Normal S2, No M/G/R Abdomen: Bowel Sounds very sluggish. Soft, mild expected postop tenderness. Nondistended. MICHAEL drain empty but had serosanguineous fluid collection in the morning : No dysuria. No renal angle tenderness. No suprapubic tenderness. Extremities: No edema, Capillary Refill Less than 3 Seconds Skin: No rashes, No breakdown Musculoskeletal: No Tenderness to Palpation of Joints or Extremities Neurological: Cranial nerves II-XII grossly intact, DTR 2+/4. No acute focal neurological deficit. Psych/Mental Status: Normal Affect, Appropriate. Lab / Micro Data 01/13/25 06:16 01/13/25 06:16 Labs: Laboratory Results - last 24 hr 01/13/25 06:16: WBC 13.2 H, RBC 5.25, Hgb 15.9, Hct 47.4, MCV 90.3, MCH 30.3, MCHC 33.5, RDW Std Deviation 45.9 H, RDW Coeff of Abdiaziz 13.8, Plt Count 203, MPV 10.0, Immature Gran % (Auto) 1.000 H, Neut % (Auto) 88.6 H, Lymph % (Auto) 4.3 L, Dupage % (Auto) 5.9, Eos % (Auto) 0.0, Baso % (Auto) 0.2, Absolute Neuts (auto) 11.7 H, Absolute Lymphs (auto) 0.57 L, Nucleated RBC % 0, Sodium 138, Potassium 4.3, Chloride 107, Carbon Dioxide 16.7 L, Anion Gap 14, BUN 30 H, Creatinine 1.08, Estim Creat Clear Calc 94.44, Est GFR (MDRD) Non-Af 76, BUN/Creatinine Ratio 27.9 H, Glucose 107 H, Calcium 8.9 01/13/25 08:34: Troponin T High Sens 7 01/13/25 10:23: Troponin T Hi Sens 2 Hr 7 Charges/Coding Visit Charges Inpatient E&M: 51750 Init Hosp L3
[2025-01-13 13:01] LABS: Troponin T High Sens 4 HR 7 ng/L (<=22)
--- NOTE | 2025-01-13 13:34 | PCM.PN.SRG ---
Subjective Subjective Patient seen and examined during AM rounds. He is found resting in bed. He reports that he ambulated numerous times yesterday, however, he is unable to report any flatus or bowel movements. He notes that he has had some belching and hiccuping. He denies an appetite. Objective Data Objective Data Vital Signs: Vital Signs Temp Pulse Resp BP Pulse Ox O2 Del Method O2 Flow Rate 97.8 F 110 H 18 123/80 H 97 Room Air 2 01/13/25 09:00 01/13/25 11:01/13/25 11:01/13/25 11:01/13/25 11:01/13/25 11:01/13/25 02:52 Oxygen Flow Rate (L/min) 2 Oxygen Delivery Method Room Air Weight: 259 lb 14.4 oz Body Mass Index (BMI) 31.6 Intake & Output: Intake and Output for Last 24 Hours 01/11/25 01/12/25 01/13/25 23:59 23:59 23:59 Intake Total 2532.33 / 2532.33 2928.75 / 2928.75 697.5 / 697.5 Output Total 136 / 136 670 / 670 140 / 140 Balance 2396.33 / 2396.33 2258.75 / 2258.75 557.5 / 557.5 Lab / Micro Data 01/13/25 06:16 01/13/25 06:16 Labs: Laboratory Results - last 24 hr 01/13/25 06:16: WBC 13.2 H, RBC 5.25, Hgb 15.9, Hct 47.4, MCV 90.3, MCH 30.3, MCHC 33.5, RDW Std Deviation 45.9 H, RDW Coeff of Abdiaziz 13.8, Plt Count 203, MPV 10.0, Immature Gran % (Auto) 1.000 H, Neut % (Auto) 88.6 H, Lymph % (Auto) 4.3 L, Rolette % (Auto) 5.9, Eos % (Auto) 0.0, Baso % (Auto) 0.2, Absolute Neuts (auto) 11.7 H, Absolute Lymphs (auto) 0.57 L, Nucleated RBC % 0, Sodium 138, Potassium 4.3, Chloride 107, Carbon Dioxide 16.7 L, Anion Gap 14, BUN 30 H, Creatinine 1.08, Estim Creat Clear Calc 94.44, Est GFR (MDRD) Non-Af 76, BUN/Creatinine Ratio 27.9 H, Glucose 107 H, Calcium 8.9 01/13/25 08:34: Troponin T High Sens 7 01/13/25 10:23: Troponin T Hi Sens 2 Hr 7 01/13/25 12:35: Troponin T Hi Sens 4Hr 7 Physical Exam Const oriented x3 and no apparent distress Resp normal respiratory effort GI GI Narrative: Operative dressings remain in place with some drainage about the exit site for patient's left lower quadrant drain which is largely serous in character. Patient has minimal tenderness to palpation of the right lower quadrant. Abdomen is otherwise moderately distended. Assessment & Plan Assessment/Plan (1) Acute appendicitis: PLAN: Postoperative day 2 from laparoscopic appendectomy with intraoperative confirmation of appendicitis with gangrene. Patient appears to exhibit clear evidence of a postoperative ileus. Therefore, cannot recommend advancement of diet at this time. He is instructed to begin trying some hard candy in addition to regular ambulation. Will continue empiric antibiotic coverage and replace electrolytes as necessary. Nursing alerted us to development of some tachycardia with atrial fibrillation shown on telemetry. Reflex EKG confirms this finding. Patient asymptomatic for A-fib with RVR. Initially responsive to IV metoprolol 5 mg but rate has subsequently increased. Therefore we will seek hospitalist consultation for management of this arrhythmia which is partially chronic but undoubtedly exacerbated by patient's clinical state. It is questionable how much bioactive medication patient will receive via an enteral route given his concurrent ileus so this should be factored in management of this arrhythmia. Given patient's stable hemoglobin we will resume Eliquis. Tony Dave MD General Surgery Endocrine Surgery Pager: [facility] [address] [place] [address], [facility], [address] [place] [address] Office: [phone] Charges/Coding Visit Charges Inpatient E&M: 96163 Subs Hosp L2
[2025-01-13] MEDS: dilTIAZem 25 MG/5 ML Vial 15 MG IV BOLUS ×2 (14:33→15:42)
--- NOTE | 2025-01-13 14:50 | EKG12_ITS ---
Test Reason : TACHY,AFIB Blood Pressure : */* mmHG Vent. Rate : 94 BPM Atrial Rate : * BPM P-R Int : * ms QRS Dur : 96 ms QT Int : 360 ms P-R-T Axes : * -10 25 degrees QTcB Int : 450 ms Atrial fibrillation Incomplete right bundle branch block Abnormal ECG Confirmed by Tony Sharpe ([id number]), international editorial producer HARRIET MALDONADO ([id number]) on 01/14/2025 7:58:04 AM Referred By: THIAGO Confirmed By: Tony Sharpe
[2025-01-13 15:58] LABS: Phosphorus 2.5 mg/dL (2.7-4.5)
[2025-01-13] MEDS: Lactated Ringers 1,000 ML 75 ML IV (16:15)
[2025-01-13] MEDS: Atorvastatin Calcium 40 MG Tablet PO (21:10)
[2025-01-14] VITALS (14 sets, daily range): BP systolic 129–153; BP diastolic 71–91; PULSE 90–117; RESP 16; TEMP 36.6–37.3; O2SAT 94–98
[2025-01-14] MEDS: Metoprolol Tartrate 5 MG/5 ML Vial IV ×3 (00:23→12:22)
[2025-01-14] MEDS: Lactated Ringers 1,000 ML 75 ML IV ×2 (04:10→18:08)
[2025-01-14] MEDS: Piperacil/Tazobactam 3.375 GM in 0.9% Normal Saline (50mL MB+) 50 ML IV ×3 (05:33→22:39)
[2025-01-14 07:33] LABS: Absolute Lymphocyte Count 0.71 X10^3/uL (0.83-4.51); Absolute Neutrophil Count 12.1 X10^3/uL (2.0-7.7); Basophil# 0.03 X10^3/uL; Basophil% 0.2 % (0-1); Eosinophil# 0.02 X10^3/uL; Eosinophils% 0.1 % (0-5); Hematocrit 45.1 % (40-54); Hemoglobin 15.3 g/dL (13.0-16.5); Lymphocyte # 0.71 X10^3/ul (0.83-4.51); Lymphocyte % 5.1 % (19-41); Mean Corp Hgb Conc 33.9 g/dL (32-36); Mean Corpuscular Hgb 30.2 pg (27.0-32.0); Mean Corpuscular Volume 89.1 fL (80-94); Mean Platelet Vol. 9.6 fl (6.2-12.0); Monocyte# 1.11 X10^3/uL; Monocyte% 7.9 % (0-10); NRBC Flagged by Analyzer 0 % (0-5); Neutrophil # 12.06 X10^3/uL (2.7-7.7); Neutrophil % 86.1 % (47-70); Platelet Count 251 K/mm3 (150-450); RBC Distribution Width SD 45.4 fl (35.1-43.9); Red Blood Count 5.06 M/mm3 (4.6-6.2)
--- NOTE | 2025-01-14 07:37 | PN.SURG_ITS ---
Subjective Subjective Patient evaluated resting comfortably in bed. He notes passing flatus. He states his belching has improved. He denies nausea, vomiting, fever. He denies any abdominal pain. Negative BM. Patient had a bout of AFib. EKG was ordered stat with finding of patient in AFib with RVR. Hospitalist was consulted to assist with rate control. Blood pressure medication was changed to IV. Objective Data Objective Data Vital Signs: Vital Signs Temp Pulse Resp BP Pulse Ox O2 Del Method O2 Flow Rate 98.2 F 104 H 16 153/91 H 95 Room Air 2 01/14/25 06:00 01/14/25 06:00 01/14/25 06:00 01/14/25 06:00 01/14/25 06:00 01/14/25 06:00 01/13/25 02:52 Oxygen Flow Rate (L/min) 2 Oxygen Delivery Method Room Air Weight: 259 lb 14.4 oz Body Mass Index (BMI) 31.6 Intake & Output: Intake and Output for Last 24 Hours 01/12/25 01/13/25 01/14/25 23:59 23:59 23:59 Intake Total 2928.75 / 2928.75 2005.83 / 2054.83 993.75 / 993.75 Output Total 670 / 670 265 / 265 110 / 110 Balance 2258.75 / 2258.75 1740.83 / 1790.83 883.75 / 883.75 Lab / Micro Data 01/14/25 07:00 01/13/25 06:16 Labs: Laboratory Results - last 24 hr 01/13/25 08:34: Troponin T High Sens 7 01/13/25 10:23: Troponin T Hi Sens 2 Hr 7 01/13/25 12:35: Troponin T Hi Sens 4Hr 7 01/13/25 13:02: Phosphorus 2.5 L, Magnesium 2.0 01/14/25 07:00: WBC 14.0 H, RBC 5.06, Hgb 15.3, Hct 45.1, MCV 89.1, MCH 30.2, MCHC 33.9, RDW Std Deviation 45.4 H, RDW Coeff of Abdiaziz 14.0, Plt Count 251, MPV 9.6, Immature Gran % (Auto) 0.600, Neut % (Auto) 86.1 H, Lymph % (Auto) 5.1 L, [place] % (Auto) 7.9, Eos % (Auto) 0.1, Baso % (Auto) 0.2, Absolute Neuts (auto) 12.1 H, Absolute Lymphs (auto) 0.71 L, Nucleated RBC % 0 Physical Exam GI GI Narrative: Abdomen- soft, nontender. MICHAEL drain with serosanguineous fluid. Incisions c/d/i. No erythema or infection noted. Assessment & Plan Assessment/Plan (1) Paroxysmal atrial fibrillation with RVR: (2) Acute appendicitis: QUALIFIERS: Acute appendicitis type: with generalized peritonitis Appendicitis gangrene presence: with gangrene Appendicitis perforation presence: with perforation Appendicitis abscess presence: unspecified whether abscess present Qualified Code(s): K35.201 - Acute appendicitis with generalized peritonitis, with perforation, without abscess PLAN: Plan I am following this patient in conjunction with Dr. Kim. He has independently evaluated this patient. Labs reviewed. WBC increased to 14.0 today Continue IV antibiotics Continue MICHAEL drain today Increase diet to clear liquids Appreciate medicine input and recommendations Encourage ambulation and I.S. Sitting in the chair today We will continue to monitor this patient Charges/Coding Visit Charges Inpatient E&M: 52889 Subs Hosp L1 (no charge; post-op)
[2025-01-14 08:03] LABS: Anion Gap 11 (5-15); BUN 23 mg/dL (4-19); BUN/Creat Ratio 25.9 RATIO (10-20); Calcium,Total 8.6 mg/dL (7.6-11.0); Carbon Dioxide 19.6 mmol/L (21.0-32.0); Chloride 110 mmol/L (98-108); Creatinine, Serum 0.89 mg/dL (0.70-1.20); EST Glomerular Filtration Rate 95 (>60); Glucose 125 mg/dL (70-99); Potassium 3.9 mmol/L (3.3-5.1); Sodium Level 140 mmol/L (133-145)
[2025-01-14] MEDS: dilTIAZem 25 MG/5 ML Vial 20 MG IV BOLUS (08:19)
[2025-01-14] MEDS: 0.9% Saline Lock 10 ML Syringe IV (08:26)
--- NOTE | 2025-01-14 08:47 | ECHOCS_ITS ---
Reason For Study Reason For Study: Afib w/RVR Procedure This was a 2D Doppler, Color Flow transthoracic echocardiogram. The study was technically difficult. Contrast injection was performed. Echo done with patient supine due to recent surgery. Exam performed portable in patient room. Left Ventricle Normal LV size. The left ventricular ejection fraction is 55 %. No regional wall motion abnormalities noted. Right Ventricle Normal RV size. Normal systolic function. Atria Normal left atrium. Normal right atrium. Mitral Valve Mitral valve not well visualized. Tricuspid Valve The tricuspid valve is not well visualized. Aortic Valve The aortic valve is not well visualized. Great Vessels The aortic root is not well visualized. The pulmonary artery is normal size. Normal inferior vena cava. Pericardium/Pleural No pericardial effusion. Medication Diluted definity 3ml given slow IV push to enhance endocardial definition. MMode/2D Measurements & Calculations LVIDd: 4.5 cm IVSd: 1.2 cm Ao root diam: 4.2 cm LVIDs: 3.3 cm LVPWd: 0.92 cm RVDd: 4.2 cm FS: 28.3 % LAV(MOD-bp): 82.6 ml LVAd ap4: 44.7 cm2 SV(MOD-sp4): 103.3 ml LAV(MOD-bp) Indexed: 33.4 ml/m2 LVLd ap4: 9.1 cm SI(MOD-sp4): 41.8 ml/m2 LAV(MOD-sp2): 96.5 ml EDV(MOD-sp4): 178.9 ml LAV(MOD-sp4): 68.7 ml EDV(sp4-el): 185.7 ml LVAs ap4: 27.4 cm2 LVLs ap4: 8.1 cm ESV(MOD-sp4): 75.5 ml ESV(sp4-el): 78.7 ml EF(MOD-sp4): 57.8 % EF(sp4-el): 57.7 % SV(sp4-el): 107.1 ml LA A4 area: 22.8 cm2 LA dimension(2D): 4.6 cm RA A4 area: 21.5 cm2 Doppler Measurements & Calculations MV E max romario: 85.9 cm/sec MV V2 max: 95.1 cm/sec Ao V2 max: 100.2 cm/sec MV max P.6 mmHg Ao max P.0 mmHg MV V2 mean: 57.6 cm/sec MV mean P.6 mmHg MV V2 VTI: 19.1 cm LV V1 max: 83.7 cm/sec MR max romario: 524.7 cm/sec LV V1 max P.8 mmHg MR max P.1 mmHg ECHO/Echo Complete W/ Contrast Interpretation Summary The left ventricular ejection fraction is 55 %. Contrast injection was performed. The study was technically difficult. Ordering Physician: Ronnie Smith Performed By: Jean-Claude Florentino RCS
[2025-01-14] MEDS: Lisinopril 10 MG Tablet PO (09:48)
[2025-01-14] MEDS: APIXABAN 5 MG TABLET PO ×2 (09:48→22:41)
[2025-01-14] MEDS: dilTIAZem 60 MG Tablet PO ×3 (09:49→19:33)
[2025-01-14] MEDS: Pantoprazole Sodium 40 MG in 0.9% Normal Saline (100mL MB+) 100 ML 330 MG IV (09:49)
[2025-01-14] MEDS: Metoprolol Tartrate 25 MG Tablet PO ×2 (13:28→22:42)
--- NOTE | 2025-01-14 16:12 | NURSING ---
All documentation by skilled nursing case manager Lilibeth Christian reviewed by skilled nursing case manager Angeles PINTO, RN.
--- NOTE | 2025-01-14 16:40 | PCM.PN.HOSP ---
Reason for Visit Reason for Visit: Diagnoses Paroxysmal atrial fibrillation (01/11/25) Acute appendicitis with generalized peritonitis, with perforation, without abscess (01/11/25) Unspecified acute appendicitis (01/11/25) Objective Data Objective Data Vital Signs: Vital Signs Temp Pulse Resp BP Pulse Ox O2 Del Method O2 Flow Rate 99.2 F H 90 16 129/71 H 98 Room Air 2 01/14/25 14:36 01/14/25 14:36 01/14/25 14:36 01/14/25 14:36 01/14/25 14:36 01/14/25 14:36 01/13/25 02:52 Oxygen Flow Rate (L/min) 2 Oxygen Delivery Method Room Air Weight: 259 lb 14.4 oz Body Mass Index (BMI) 31.6 Intake & Output: Intake and Output for Last 24 Hours 01/12/25 01/13/25 01/14/25 23:59 23:59 23:59 Intake Total 2928.75 / 2928.75 2005.83 / 2055.83 1753.75 / 1753.75 Output Total 670 / 670 265 / 265 110 / 110 Balance 2258.75 / 2258.75 1740.83 / 1790.83 1643.75 / 1643.75 Lab / Micro Data 01/14/25 07:00 01/14/25 07:00 Labs: Laboratory Results - last 24 hr 01/14/25 07:00: WBC 14.0 H, RBC 5.06, Hgb 15.3, Hct 45.1, MCV 89.1, MCH 30.2, MCHC 33.9, RDW Std Deviation 45.4 H, RDW Coeff of Abdiaziz 14.0, Plt Count 251, MPV 9.6, Immature Gran % (Auto) 0.600, Neut % (Auto) 86.1 H, Lymph % (Auto) 5.1 L, [place] % (Auto) 7.9, Eos % (Auto) 0.1, Baso % (Auto) 0.2, Absolute Neuts (auto) 12.1 H, Absolute Lymphs (auto) 0.71 L, Nucleated RBC % 0, Sodium 140, Potassium 3.9, Chloride 110 H, Carbon Dioxide 19.6 L, Anion Gap 11, BUN 23 H, Creatinine 0.89, Estim Creat Clear Calc 114.60, Est GFR (MDRD) Non-Af 95, BUN/Creatinine Ratio 25.9 H, Glucose 125 H, Calcium 8.6 Radiography Diagnostic Testing: Radiology Impression Echocardiogram 01/14/25 08:47 Interpretation Summary The left ventricular ejection fraction is 55 %. Contrast injection was performed. The study was technically difficult. Ordering Physician: Ronnie Smith Performed By: Jean-Claude Florentino RCS Physical Exam Narrative Seen and examined. In the morning patient heart rate was up, 110 220 per blood. Blood pressure systolic in 140s. No symptoms including chest pain pressure tightness or shortness of breath Physical exam: General: Alert, Oriented x3, Cooperative HEENT: Atraumatic, PERRLA, EOMI, Normocephalic Oral: No Gingival or Mucosal Lesions/ Ulcerations Neck: Supple, No JVD, Negative Carotid Bruits Chest wall/Lungs: Air entry diminished in bilateral lung bases. No crepitation/rhonchi Cardiovascular: A-fib RVR, Normal S1, Normal S2, No M/G/R Abdomen: Bowel Sounds present soft, no significant tenderness. Nondistended. MICHAEL drain mainly small serum fluids collected about 20 mL per : No dysuria. No renal angle tenderness. No suprapubic tenderness. Extremities: No edema, Capillary Refill Less than 3 Seconds Skin: No rashes, No breakdown Musculoskeletal: No Tenderness to Palpation of Joints or Extremities Neurological: Cranial nerves II-XII grossly intact, DTR 2+/4. No acute focal neurological deficit. Psych/Mental Status: Normal Affect, Appropriate. Assessment & Plan Assessment/Plan (1) Acute appendicitis: QUALIFIERS: Acute appendicitis type: with generalized peritonitis Appendicitis gangrene presence: with gangrene Appendicitis perforation presence: with perforation Appendicitis abscess presence: unspecified whether abscess present Qualified Code(s): K35.201 - Acute appendicitis with generalized peritonitis, with perforation, without abscess (2) Paroxysmal atrial fibrillation with RVR: PLAN: Plan This 64-year-old gentleman being admitted surgical service for acute complicated complicated appendicitis with perforation and gangrene resulting into peritonitis Patient developed A-fib RVR with history of paroxysmal A-fib. 1. A-fib RVR probably precipitated by surgical distress: Twelve-lead EKG shows A-fib RVR rate 130 bpm. QTc 400 ms. Previous EKG of December 15, 2024 shows NSR 72 bpm. 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 At home, he is on metoprolol 50 mg p.o. twice daily, apixaban 5 mg twice daily and baby aspirin. Eliquis is already resumed. On metoprolol 5 mg IV every 6 hourly. Patient is still n.p.o. and bowel function is compromised therefore Cardizem 15 mg x 1 given heart rate slowed down from 130s to 90s per hour. Repeat EKG shows A-fib at 94 beats minute. Second dose of Cardizem 15 mg ordered. Last echo shows EF 55% PASP 35 mmHg, right atrium moderately large. Stage II distal dysfunction therefore suggestive of chronic HFpEF 4/2: Diltiazem 20 g IV was given in the morning. Patient is allowed oral by surgeon and therefore started on Cardizem 60 mg every 6 hourly. Metoprolol 25 mg twice daily. Echo EF 55%. 2. Chronic HFpEF: Patient not in fluid overload. Patient already positive fluid balance about 6.2 L. Decrease IV fluid from 125 mL/h to 75/h. 3. Acute complicated appendicitis with perforation and gangrene and peritonitis: Patient has MICHAEL drain. Still NPO. Patient has mild metabolic acidosis, bicarb 16. Sodium and potassium normal. Will change the IV fluid, normal saline to Ringer lactate. As per surgeons recommendation Patient admitted to criteria for septic shock most likely due to UTI although colonic ileus is also on consideration. Patient has evidence of endorgan dysfunction including persistent hypotension requiring vasopressor, lactic acidosis, acute hypoxic respiratory failure and SUNDAR on CKD Charges/Coding Visit Charges Inpatient E&M: 07938 Subs Hosp L2
[2025-01-14] MEDS: Atorvastatin Calcium 40 MG Tablet PO (22:42)
[2025-01-15] VITALS (9 sets, daily range): BP systolic 115–146; BP diastolic 67–89; PULSE 86–100; RESP 16–18; TEMP 36.6–37.3; O2SAT 94–96
[2025-01-15] MEDS: dilTIAZem 60 MG Tablet PO ×3 (05:07→17:33)
[2025-01-15] MEDS: Piperacil/Tazobactam 3.375 GM in 0.9% Normal Saline (50mL MB+) 50 ML IV ×3 (05:08→21:40)
[2025-01-15] MEDS: Lactated Ringers 1,000 ML 75 ML IV ×2 (07:36→21:38)
[2025-01-15 08:45] LABS: Absolute Lymphocyte Count 0.65 X10^3/uL (0.83-4.51); Absolute Neutrophil Count 9.6 X10^3/uL (2.0-7.7); Basophil# 0.05 X10^3/uL; Basophil% 0.4 % (0-1); Eosinophil# 0.07 X10^3/uL; Eosinophils% 0.6 % (0-5); Hematocrit 43.9 % (40-54); Hemoglobin 15.1 g/dL (13.0-16.5); Lymphocyte # 0.65 X10^3/ul (0.83-4.51); Lymphocyte % 5.5 % (19-41); Mean Corp Hgb Conc 34.4 g/dL (32-36); Mean Corpuscular Hgb 30.4 pg (27.0-32.0); Mean Corpuscular Volume 88.5 fL (80-94); Mean Platelet Vol. 9.8 fl (6.2-12.0); Monocyte# 1.22 X10^3/uL; Monocyte% 10.4 % (0-10); NRBC Flagged by Analyzer 0 % (0-5); Neutrophil # 9.57 X10^3/uL (2.7-7.7); Neutrophil % 81.7 % (47-70); Platelet Count 260 K/mm3 (150-450); RBC Distribution Width SD 45.1 fl (35.1-43.9); Red Blood Count 4.96 M/mm3 (4.6-6.2); White Blood Count 11.7 K/mm3 (4.4-11.0)
--- NOTE | 2025-01-15 08:57 | PCM.PN.SRG ---
Subjective Subjective Patient evaluated resting comfortably in bed. He denies nausea, vomiting, fever. He notes minimal abdominal discomfort. He tolerated clear liquids yesterday. He denies a BM, positive flatus. He seems to be overall feeling improved. Objective Data Objective Data Vital Signs: Vital Signs Temp Pulse Resp BP Pulse Ox O2 Del Method O2 Flow Rate 99.2 F H 93 16 146/85 H 94 Room Air 2 01/15/25 02:00 01/15/25 02:00 01/15/25 02:00 01/15/25 02:00 01/15/25 02:00 01/15/25 02:00 01/13/25 02:52 Oxygen Flow Rate (L/min) 2 Oxygen Delivery Method Room Air Weight: 259 lb 14.4 oz Body Mass Index (BMI) 31.6 Intake & Output: Intake and Output for Last 24 Hours 01/13/25 01/14/25 01/15/25 23:59 23:59 23:59 Intake Total 2005.83 / 2055.83 2803.75 / 2803.75 1050 / 1050 Output Total 265 / 265 140 / 230 160 / 160 Balance 1740.83 / 1790.83 2663.75 / 2573.75 890 / 890 Lab / Micro Data 01/15/25 06:54 01/15/25 06:54 Labs: Laboratory Results - last 24 hr 01/15/25 06:54: WBC 11.7 H, RBC 4.96, Hgb 15.1, Hct 43.9, MCV 88.5, MCH 30.4, MCHC 34.4, RDW Std Deviation 45.1 H, RDW Coeff of Abdiaziz 14.0, Plt Count 260, MPV 9.8, Immature Gran % (Auto) 1.400 H, Neut % (Auto) 81.7 H, Lymph % (Auto) 5.5 L, [place] % (Auto) 10.4 H, Eos % (Auto) 0.6, Baso % (Auto) 0.4, Absolute Neuts (auto) 9.6 H, Absolute Lymphs (auto) 0.65 L, Nucleated RBC % 0 Radiography Diagnostic Testing: Radiology Impression Echocardiogram 01/14/25 08:47 Interpretation Summary The left ventricular ejection fraction is 55 %. Contrast injection was performed. The study was technically difficult. Ordering Physician: Ronnie Smith Performed By: Jean-Claude Florentino RCS Physical Exam GI GI Narrative: Abdomen- soft, nontender. Incisions c/d/i. No erythema or infection noted. MICHAEL drain intact with serosanguineous fluid noted. Assessment & Plan Assessment/Plan (1) Acute appendicitis: QUALIFIERS: Acute appendicitis type: with generalized peritonitis Appendicitis gangrene presence: with gangrene Appendicitis perforation presence: with perforation Appendicitis abscess presence: unspecified whether abscess present Qualified Code(s): K35.201 - Acute appendicitis with generalized peritonitis, with perforation, without abscess PLAN: I am following this patient in conjunction with Dr. Weinstein in Dr. Kim's absence. She has independently evaluated this patient. Labs reviewed. WBC decreased to 11.7 Continue IV antibiotics until discharge and will switch to oral antibiotics at that time Continue with MICHAEL drain until WBC has normalized Increase diet to include full liquids today Appreciate medicine evaluation and recommendations We will continue to monitor this patient Hopeful discharge tomorrow Charges/Coding Visit Charges Inpatient E&M: 48686 Subs Hosp L1 (no charge; post-op)
[2025-01-15 09:03] LABS: Anion Gap 11 (5-15); BUN 14 mg/dL (4-19); BUN/Creat Ratio 17.8 RATIO (10-20); Calcium,Total 8.3 mg/dL (7.6-11.0); Carbon Dioxide 21.4 mmol/L (21.0-32.0); Chloride 105 mmol/L (98-108); EST Glomerular Filtration Rate 98 (>60); Estimated Creatinine Clearance 127.49 ml/min (50-250); Glucose 153 mg/dL (70-99); Potassium 3.7 mmol/L (3.3-5.1); Sodium Level 138 mmol/L (133-145)
[2025-01-15] MEDS: APIXABAN 5 MG TABLET PO ×2 (09:13→21:38)
[2025-01-15] MEDS: Lisinopril 10 MG Tablet PO (09:14)
[2025-01-15] MEDS: Metoprolol Tartrate 25 MG Tablet PO ×2 (09:14→21:38)
[2025-01-15] MEDS: Pantoprazole Sodium 40 MG in 0.9% Normal Saline (100mL MB+) 100 ML 330 MG IV (09:29)
--- NOTE | 2025-01-15 11:25 | EKG12_ITS ---
Test Reason : AF Blood Pressure : */* mmHG Vent. Rate : 88 BPM Atrial Rate : * BPM P-R Int : * ms QRS Dur : 90 ms QT Int : 370 ms P-R-T Axes : * 85 43 degrees QTcB Int : 447 ms Atrial fibrillation Abnormal ECG When compared with ECG of 13-Jan-2025 14:59, Questionable change in QRS axis Confirmed by JULIAN BOWER, SINAN ([id number]), technical editor BRUCE ULRICH ([id number]) on 01/19/2025 2:02:35 PM Referred By: THIAGO Confirmed By: SINAN JORDAN MD
--- NOTE | 2025-01-15 13:50 | PCM.PN.HOSP ---
Reason for Visit Reason for Visit: Diagnoses Paroxysmal atrial fibrillation (01/11/25) Acute appendicitis with generalized peritonitis, with perforation, without abscess (01/11/25) Unspecified acute appendicitis (01/11/25) Objective Data Objective Data Vital Signs: Vital Signs Temp Pulse Resp BP Pulse Ox O2 Del Method O2 Flow Rate 98.1 F 86 16 115/67 95 Room Air 2 01/15/25 08:30 01/15/25 11:00 01/15/25 08:30 01/15/25 08:30 01/15/25 08:30 01/15/25 08:30 01/13/25 02:52 Oxygen Flow Rate (L/min) 2 Oxygen Delivery Method Room Air Weight: 259 lb 14.4 oz Body Mass Index (BMI) 31.6 Intake & Output: Intake and Output for Last 24 Hours 01/13/25 01/14/25 01/15/25 23:59 23:59 23:59 Intake Total 2005.83 / 2055.83 2803.75 / 2803.75 1351.25 / 1351.25 Output Total 265 / 265 140 / 230 190 / 190 Balance 1740.83 / 1790.83 2663.75 / 2573.75 1161.25 / 1161.25 Lab / Micro Data 01/15/25 06:54 01/15/25 06:54 Labs: Laboratory Results - last 24 hr 01/15/25 06:54: WBC 11.7 H, RBC 4.96, Hgb 15.1, Hct 43.9, MCV 88.5, MCH 30.4, MCHC 34.4, RDW Std Deviation 45.1 H, RDW Coeff of Abdiaziz 14.0, Plt Count 260, MPV 9.8, Immature Gran % (Auto) 1.400 H, Neut % (Auto) 81.7 H, Lymph % (Auto) 5.5 L, [place] % (Auto) 10.4 H, Eos % (Auto) 0.6, Baso % (Auto) 0.4, Absolute Neuts (auto) 9.6 H, Absolute Lymphs (auto) 0.65 L, Nucleated RBC % 0, Sodium 138, Potassium 3.7, Chloride 105, Carbon Dioxide 21.4, Anion Gap 11, BUN 14, Creatinine 0.80, Estim Creat Clear Calc 127.49, Est GFR (MDRD) Non-Af 98, BUN/Creatinine Ratio 17.8, Glucose 153 H, Calcium 8.3 Radiography Diagnostic Testing: Radiology Impression Echocardiogram 01/14/25 08:47 Interpretation Summary The left ventricular ejection fraction is 55 %. Contrast injection was performed. The study was technically difficult. Ordering Physician: Ronnie Smith Performed By: Jean-Claude Florentino RCS Physical Exam Narrative Seen and examined. Heart rate is controlled. In the morning it was in 90s but most recent in 80s. Still in A-fib. Has not moved bowel yet. No symptoms including chest pain pressure tightness or shortness of breath Physical exam: General: Alert, Oriented x3, Cooperative HEENT: Atraumatic, PERRLA, EOMI, Normocephalic Oral: No Gingival or Mucosal Lesions/ Ulcerations Neck: Supple, No JVD, Negative Carotid Bruits Chest wall/Lungs: Air entry diminished in bilateral lung bases. No crepitation/rhonchi Cardiovascular: Irregular, heart rate controlled. No M/G/R Abdomen: Bowel Sounds present soft, no significant tenderness. Nondistended. MICHAEL drain, minimal amount. : No dysuria. No renal angle tenderness. No suprapubic tenderness. Extremities: No edema, Capillary Refill Less than 3 Seconds Skin: No rashes, No breakdown Musculoskeletal: No Tenderness to Palpation of Joints or Extremities Neurological: Cranial nerves II-XII grossly intact, DTR 2+/4. No acute focal neurological deficit. Psych/Mental Status: Normal Affect, Appropriate. Assessment & Plan Assessment/Plan (1) Acute appendicitis: QUALIFIERS: Acute appendicitis type: with generalized peritonitis Appendicitis gangrene presence: with gangrene Appendicitis perforation presence: with perforation Appendicitis abscess presence: unspecified whether abscess present Qualified Code(s): K35.201 - Acute appendicitis with generalized peritonitis, with perforation, without abscess (2) Paroxysmal atrial fibrillation with RVR: PLAN: Plan This 64-year-old gentleman being admitted surgical service for acute complicated complicated appendicitis with perforation and gangrene resulting into peritonitis Patient developed A-fib RVR with history of paroxysmal A-fib. 1. A-fib RVR probably precipitated by surgical distress: Twelve-lead EKG shows A-fib RVR rate 130 bpm. QTc 400 ms. Previous EKG of December 15, 2024 shows NSR 72 bpm. Patient on laboratory monitor. At home, he is on metoprolol 50 mg p.o. twice daily, apixaban 5 mg twice daily and baby aspirin. Eliquis is already resumed. On metoprolol 5 mg IV every 6 hourly. Patient is still n.p.o. and bowel function is compromised therefore Cardizem 15 mg x 1 given heart rate slowed down from 130s to 90s per hour. Repeat EKG shows A-fib at 94 beats minute. Second dose of Cardizem 15 mg ordered. Last echo shows EF 55% PASP 35 mmHg, right atrium moderately large. Stage II distal dysfunction therefore suggestive of chronic HFpEF 4/2: Diltiazem 20 g IV was given in the morning. Patient is allowed oral by surgeon and therefore started on Cardizem 60 mg every 6 hourly. Metoprolol 25 mg twice daily. Echo EF 55%. 4/3: Heart rate is controlled patient still in A-fib. Twelve-lead EKG was done, heart rate 83/min. 2D echo reviewed with the patient. Continue metoprolol and Cardizem as mentioned above. 2. Chronic HFpEF: Patient not in fluid overload. Patient already positive fluid balance about 6.2 L. Decrease IV fluid from 125 mL/h to 75/h. 3. Acute complicated appendicitis with perforation and gangrene and peritonitis: Patient has MICHAEL drain. Still NPO. Patient has mild metabolic acidosis, bicarb 16. Sodium and potassium normal. Will change the IV fluid, normal saline to Ringer lactate. As per surgeons recommendation 4/3: Low-grade temperature 99.2 ?F. Does not qualify for fever. Mild leukocytosis 11.7 thousand. Patient on IV Zosyn since beginning. Patient admitted to criteria for septic shock most likely due to UTI although colonic ileus is also on consideration. Patient has evidence of endorgan dysfunction including persistent hypotension requiring vasopressor, lactic acidosis, acute hypoxic respiratory failure and SUNDAR on CKD Charges/Coding Visit Charges Inpatient E&M: 09548 Subs Hosp L2
[2025-01-15] MEDS: Ensure Plus High Protein 120 ML LIQUID PO ×2 (14:09→18:16)
[2025-01-15] MEDS: Atorvastatin Calcium 40 MG Tablet PO (21:38)
[2025-01-16] VITALS (7 sets, daily range): BP systolic 142–150; BP diastolic 77–84; PULSE 78–94; RESP 16–18; TEMP 36.8–37.4; O2SAT 91–96
[2025-01-16] MEDS: dilTIAZem 60 MG Tablet PO ×3 (01:00→11:40)
[2025-01-16] MEDS: Piperacil/Tazobactam 3.375 GM in 0.9% Normal Saline (50mL MB+) 50 ML IV ×2 (06:29→13:53)
[2025-01-16 07:38] LABS: Absolute Lymphocyte Count 1.14 X10^3/uL (0.83-4.51); Absolute Neutrophil Count 10.5 X10^3/uL (2.0-7.7); Basophil# 0.09 X10^3/uL; Basophil% 0.7 % (0-1); Eosinophils% 1.5 % (0-5); Hematocrit 46.8 % (40-54); Hemoglobin 15.8 g/dL (13.0-16.5); Lymphocyte # 1.14 X10^3/ul (0.83-4.51); Lymphocyte % 8.4 % (19-41); Mean Corp Hgb Conc 33.8 g/dL (32-36); Mean Corpuscular Volume 88.8 fL (80-94); Mean Platelet Vol. 9.2 fl (6.2-12.0); Monocyte# 1.36 X10^3/uL; NRBC Flagged by Analyzer 0 % (0-5); Neutrophil # 10.54 X10^3/uL (2.7-7.7); Neutrophil % 77.2 % (47-70); Platelet Count 315 K/mm3 (150-450); RBC Distribution Width CV 14.2 % (11.6-14.6); RBC Distribution Width SD 46.1 fl (35.1-43.9); Red Blood Count 5.27 M/mm3 (4.6-6.2); White Blood Count 13.6 K/mm3 (4.4-11.0)
[2025-01-16 08:34] LABS: BUN 12 mg/dL (4-19); BUN/Creat Ratio 14.5 RATIO (10-20); Calcium,Total 8.8 mg/dL (7.6-11.0); Carbon Dioxide 23.5 mmol/L (21.0-32.0); Creatinine, Serum 0.85 mg/dL (0.70-1.20); EST Glomerular Filtration Rate 96 (>60); Estimated Creatinine Clearance 119.99 ml/min (50-250); Glucose 137 mg/dL (70-99)
[2025-01-16 08:38] LABS: Anion Gap 12 (5-15); Chloride 103 mmol/L (98-108); Potassium 3.3 mmol/L (3.3-5.1); Sodium Level 139 mmol/L (133-145)
[2025-01-16] MEDS: APIXABAN 5 MG TABLET PO (08:42)
[2025-01-16] MEDS: Ensure Plus High Protein 120 ML LIQUID PO (08:42)
[2025-01-16] MEDS: Pantoprazole Sodium 40 MG in 0.9% Normal Saline (100mL MB+) 100 ML 330 MG IV (08:42)
[2025-01-16] MEDS: Metoprolol Tartrate 25 MG Tablet PO ×2 (08:42→11:40)
[2025-01-16] MEDS: Lisinopril 10 MG Tablet PO (08:43)
--- NOTE | 2025-01-16 13:57 | PCM.DC.SUM ---
Providers Date of Admission: 01/11/25 Date of Discharge: 01/16/25 Primary Care Physician: Dr. Markus Gunter MD Consultations 01/13/25 12:26 Consult: Hospitalist Routine Consulting Provider: Ronnie Smith Reason for Consult: AFib with RVR EMERGENT Consult: No MD Notified: Yes Date Notified: 01/13/25 Time Notified: 12:26 Method of Notification: Text Reason For Visit: ACUTE APPENDICITIS W/ GANGRENE AND PERFORATION Diagnosis Discharge Diagnosis (1) Acute appendicitis: Status: Acute Code(s): K35.80 - Unspecified acute appendicitis Qualifiers: Acute appendicitis type: with generalized peritonitis Appendicitis gangrene presence: with gangrene Appendicitis perforation presence: with perforation Appendicitis abscess presence: unspecified whether abscess present Qualified Code(s): K35.201 - Acute appendicitis with generalized peritonitis, with perforation, without abscess (2) Paroxysmal atrial fibrillation with RVR: Status: Acute Code(s): I48.0 - Paroxysmal atrial fibrillation Medications at Discharge Home Medications aspirin 81 mg tablet,delayed release 81 mg PO QDAY 05/16/18 magnesium aspart,citrate,oxide (Triple Magnesium Complex) 250 mg PO DAILY 11/12/23 atorvastatin 40 mg tablet 40 mg PO QDAY #90 tabs 08/15/24 lisinopril 10 mg tablet 10 mg PO DAILY #90 tabs 08/15/24 apixaban 5 mg tablet (Eliquis) 5 mg PO BID #180 tabs 10/16/24 metoprolol tartrate 50 mg tablet 50 mg PO BID #180 tabs 11/12/24 acetaminophen 650 mg tablet,extended release 1,300 mg PO Q12H PRN knee pain 01/11/25 amoxicillin 500 mg-potassium clavulanate 125 mg tablet (Augmentin) 1 tab PO Q12H 7 days #14 tabs 01/16/25 Hospital Course Operations appendectomy Summary of Care Provided Hospital Course: Patient is a 64-year-old male who presented to the hospital with abdominal pain he was found to have perforated and gangrenous appendicitis. He underwent surgery. He tolerated the surgery well. A drain was placed at that time. He was placed on antibiotics. He continues to improve. He has had return of bowel function. White count has decreased. Anticipate discharge to home with antibiotics today Physical Exam Const Constitutional Narrative: He is alert and oriented x 3. He is in no acute distress. Abdomen is soft, appropriately tender and nondistended. MICHAEL drain with serous drainage. This was successfully removed. Incisions are clean dry and intact. Weight / BMI Weight Weight: 259 lb 14.4 oz Body Mass Index (BMI) 31.6 ABG / Lab / Microbiology Data 01/16/25 07:20 01/16/25 07:20 Laboratory: Laboratory Results - last 24 hr 01/16/25 07:20: WBC 13.6 H, RBC 5.27, Hgb 15.8, Hct 46.8, MCV 88.8, MCH 30.0, MCHC 33.8, RDW Std Deviation 46.1 H, RDW Coeff of Abdiaziz 14.2, Plt Count 315, MPV 9.2, Immature Gran % (Auto) 2.200 H, Neut % (Auto) 77.2 H, Lymph % (Auto) 8.4 L, [place] % (Auto) 10.0, Eos % (Auto) 1.5, Baso % (Auto) 0.7, Absolute Neuts (auto) 10.5 H, Absolute Lymphs (auto) 1.14, Nucleated RBC % 0, Sodium 139, Potassium 3.3, Chloride 103, Carbon Dioxide 23.5, Anion Gap 12, BUN 12, Creatinine 0.85, Estim Creat Clear Calc 119.99, Est GFR (MDRD) Non-Af 96, BUN/Creatinine Ratio 14.5, Glucose 137 H, Calcium 8.8 D/C Instructions Discharge Diet: Light diet - advance as tolerated Discharge Activity: Return to Normal Activity and May Shower May shower in (days): 1 Ice area for (Minutes): 30 Lifting Restricted to (Lbs): 20 Call your doctor if your incision/area has: Continuous Slow Oozing, Sudden Increased Bleeding, Increased Pain/ Swelling, Increased Redness, Foul Smelling Discharge and Swelling at the incision site Call your doctor if you observe: Fever of 101 or Higher Cleanse incision/area with: Soap & Water DC O2, CPAP, BIPAP Needs Home O2 Discharge instructions: No DC home with Oxygen: No Please Follow Up With: Keyur Kim MD When: 1 to 2 weeks. Please call office to schedule appointment Meaningful Use Info Meaningful Use Meaningful Use Diagnoses (Choose all that apply): None applicable Ischemic Stroke Statin Dosing Therapy Reference: STATIN DOSE THERAPY REFERENCE: * Patients > 75 years receive moderate or high dose statin therapy. * Patients 75 years or YOUNGER should receive HIGH intensity statin dose unless contraindicated. You will be required to document reason for non-treatment if statin daily dose does not meet guidelines. HIGH DOSE STATIN THERAPY DAILY Atorvastatin > than or = to 40 mg Rosuvastatin > than or = to 20 mg Amlodipine + Atorvastatin > than or = to 2.5/40 mg Ezetimibe + Simvastatin 10/80 mg Simvastatin 80mg Discharge Plan Admission Admit Date/Time: 01/11/25 12:15 Primary Reason for Your Visit: Appendicitis Attending Provider: Keyur Kim Primary Care Provider: Markus Gunter Consulting Providers: Ronnie Smith Discharge Orders/Prescriptions Prescriptions: New amoxicillin-pot clavulanate [Augmentin] 500-125 mg tablet 1 tab PO Q12H 7 Days Qty: 14 0RF No Action aspirin 81 mg tablet,delayed release (DR/EC) 81 mg PO QDAY Triple Magnesium Complex 400 mg magnesium capsule 250 mg PO DAILY acetaminophen 650 mg tablet extended release 1,300 mg PO Q12H PRN (Reason: knee pain) atorvastatin 40 mg tablet 40 mg PO QDAY Qty: 90 4RF lisinopril 10 mg tablet 10 mg PO DAILY Qty: 90 3RF Eliquis 5 mg tablet 5 mg PO BID Qty: 180 3RF metoprolol tartrate 50 mg tablet 50 mg PO BID Qty: 180 3RF Referrals / Follow Up: Markus Gunter MD [Primary Care Provider] - Disposition Disposition (needs filled in before D/C Order can be placed): Home, Self Care
--- NOTE | 2025-01-16 14:14 | PN.HOSP_ITS ---
Reason for Visit Reason for Visit: Diagnoses Paroxysmal atrial fibrillation (01/11/25) Acute appendicitis with generalized peritonitis, with perforation, without abscess (01/11/25) Unspecified acute appendicitis (01/11/25) Objective Data Objective Data Vital Signs: Vital Signs Temp Pulse Resp BP Pulse Ox O2 Del Method O2 Flow Rate 98.2 F 88 18 142/78 H 96 Room Air 2 01/16/25 12:00 01/16/25 12:00 01/16/25 12:00 01/16/25 12:00 01/16/25 12:00 01/16/25 12:00 01/13/25 02:52 Oxygen Flow Rate (L/min) 2 Oxygen Delivery Method Room Air Weight: 259 lb 14.4 oz Body Mass Index (BMI) 31.6 Intake & Output: Intake and Output for Last 24 Hours 01/14/25 01/15/25 01/16/25 23:59 23:59 23:59 Intake Total 2803.75 / 2803.75 2500.00 / 2500.00 210 / 210 Output Total 140 / 230 350 / 350 150 / 150 Balance 2663.75 / 2573.75 2150.00 / 2150.00 60 / 60 Lab / Micro Data 01/16/25 07:20 01/16/25 07:20 Labs: Laboratory Results - last 24 hr 01/16/25 07:20: WBC 13.6 H, RBC 5.27, Hgb 15.8, Hct 46.8, MCV 88.8, MCH 30.0, MCHC 33.8, RDW Std Deviation 46.1 H, RDW Coeff of Abdiaziz 14.2, Plt Count 315, MPV 9.2, Immature Gran % (Auto) 2.200 H, Neut % (Auto) 77.2 H, Lymph % (Auto) 8.4 L, Charlotte % (Auto) 10.0, Eos % (Auto) 1.5, Baso % (Auto) 0.7, Absolute Neuts (auto) 10.5 H, Absolute Lymphs (auto) 1.14, Nucleated RBC % 0, Sodium 139, Potassium 3.3, Chloride 103, Carbon Dioxide 23.5, Anion Gap 12, BUN 12, Creatinine 0.85, Estim Creat Clear Calc 119.99, Est GFR (MDRD) Non-Af 96, BUN/Creatinine Ratio 14.5, Glucose 137 H, Calcium 8.8 Physical Exam Narrative Seen and examined. Heart rate is controlled. Heart rate in 80s. BP 142/78. Still in A-fib. Charted has moved bowels 4/3. No symptoms including chest pain pressure tightness or shortness of breath Physical exam: General: Alert, Oriented x3, Cooperative HEENT: Atraumatic, PERRLA, EOMI, Normocephalic Oral: No Gingival or Mucosal Lesions/ Ulcerations Neck: Supple, No JVD, Negative Carotid Bruits Chest wall/Lungs: Air entry diminished in bilateral lung bases. No crepitation/rhonchi Cardiovascular: Irregular, heart rate controlled. No M/G/R Abdomen: Bowel Sounds present soft, no significant tenderness. Nondistended. MICHAEL drain, minimal amount. : No dysuria. No renal angle tenderness. No suprapubic tenderness. Extremities: No edema, Capillary Refill Less than 3 Seconds Skin: No rashes, No breakdown Musculoskeletal: No Tenderness to Palpation of Joints or Extremities Neurological: Cranial nerves II-XII grossly intact, DTR 2+/4. No acute focal neurological deficit. Psych/Mental Status: Normal Affect, Appropriate. Assessment & Plan Assessment/Plan (1) Acute appendicitis: QUALIFIERS: Acute appendicitis type: with generalized peritonitis Appendicitis gangrene presence: with gangrene Appendicitis perforation presence: with perforation Appendicitis abscess presence: unspecified whether abscess present Qualified Code(s): K35.201 - Acute appendicitis with generalized peritonitis, with perforation, without abscess (2) Paroxysmal atrial fibrillation with RVR: PLAN: Plan This 64-year-old gentleman being admitted surgical service for acute complicated complicated appendicitis with perforation and gangrene resulting into peritonitis Patient developed A-fib RVR with history of paroxysmal A-fib. 1. A-fib RVR probably precipitated by surgical distress: Twelve-lead EKG shows A-fib RVR rate 130 bpm. QTc 400 ms. Previous EKG of December 15, 2024 shows NSR 72 bpm. Patient on monitoring specialist. At home, he is on metoprolol 50 mg p.o. twice daily, apixaban 5 mg twice daily and baby aspirin. Eliquis is already resumed. On metoprolol 5 mg IV every 6 hourly. Patient is still n.p.o. and bowel function is compromised therefore Cardizem 15 mg x 1 given heart rate slowed down from 130s to 90s per hour. Repeat EKG shows A-fib at 94 beats minute. Second dose of Cardizem 15 mg ordered. Last echo shows EF 55% PASP 35 mmHg, right atrium moderately large. Stage II distal dysfunction therefore suggestive of chronic HFpEF 4/4: Patient is medically cleared for discharge. Whenever discharged, prescription is sent for metoprolol succinate 100 mg daily at breakfast, Cardizem CD 2040 mg daily at about 10 AM and lisinopril at night. Hold baby aspirin but continue Eliquis. Follow-up in cardiology office in 1 month. 2. Chronic HFpEF: Patient not in fluid overload. Patient already positive fluid balance about 6.2 L. Decrease IV fluid from 125 mL/h to 75/h. /4: Fluid status is well-controlled. Euvolemic 3. Acute complicated appendicitis with perforation and gangrene and peritonitis: Patient has MICHAEL drain. Still NPO. Patient has mild metabolic acidosis, bicarb 16. Sodium and potassium normal. Will change the IV fluid, normal saline to Ringer lactate. As per surgeons recommendation Patient did not had any sepsis. Documentation in the previous note was typographical error. Charges/Coding Visit Charges Inpatient E&M: 84005 Subs Hosp L2
--- NOTE | 2025-01-16 14:39 | CASEMGMT ---
Pt has an order for DC placed. JAYASHREE CM to pt room at this time. Pt still states that he feels safe discharging home alone and denies needs including HHC or OP Tx. 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 Pt denies any further questions, concerns, or needs at this time.
== END 2025-01-16 15:21 | disposition home or self-care (01) | DRG 398 ==
LOC: ED 09:43 → MS3 10:04
PROVIDERS: Internal Medicine; Physician Assistant; Admitting Provider Surgery; Emergency Provider Emergency Medicine; PCP Family Medicine; Visit Provider Surgery
PROC: 0DTJ4ZZ Resection of Appendix, Percutaneous Endoscopic Approach (ICD-10-PCS; CPT 44970; principal; 2025-01-11 11:45)
DX: K35.201 Acute appendicitis with generalized peritonitis, with perforation, without abscess (principal); K56.7 Ileus, unspecified; E87.20 Acidosis, unspecified; I13.0 Hypertensive heart and chronic kidney disease with heart failure and stage 1 through stage 4 chronic kidney disease, or unspecified chronic kidney disease; I50.32 Chronic diastolic (congestive) heart failure; K91.89 Other postprocedural complications and disorders of digestive system; N18.9 Chronic kidney disease, unspecified; I48.0 Paroxysmal atrial fibrillation; E78.5 Hyperlipidemia, unspecified; I25.10 Atherosclerotic heart disease of native coronary artery without angina pectoris; K40.90 Unilateral inguinal hernia, without obstruction or gangrene, not specified as recurrent; M47.895 Other spondylosis, thoracolumbar region; Z95.5 Presence of coronary angioplasty implant and graft; Z79.82 Long term (current) use of aspirin; Z79.01 Long term (current) use of anticoagulants; Z79.899 Other long term (current) drug therapy; N28.1 Cyst of kidney, acquired
CPT/HCPCS: 36415; 74176; 76705; 80048; 80053; 83605; 83690; 83735; 84100; 84484; 85025; 88304; 93005; 93306; 94668; 96374; 96375; 99283; 99284; Q9957; A4216; C8929; J2405

== ENCOUNTER → 2025-02-03 | Outpatient (CLI) | payer MEDICARE, SELFPAY ==
[2025-02-03 10:07] LABS: Bacteria 0 SEEN /hpf (None Seen)
[2025-02-03 12:28] LABS: Absolute Lymphocyte Count 0.92 X10^3/uL (0.83-4.51); Absolute Neutrophil Count 8.4 X10^3/uL (2.0-7.7); Basophil% 0.9 % (0-1); Eosinophil# 0.22 X10^3/uL; Eosinophils% 2.1 % (0-5); Hematocrit 43.3 % (40-54); Hemoglobin 14.8 g/dL (13.0-16.5); Lymphocyte # 0.92 X10^3/ul (0.83-4.51); Lymphocyte % 8.7 % (19-41); Mean Corp Hgb Conc 34.2 g/dL (32-36); Mean Corpuscular Hgb 30.1 pg (27.0-32.0); Mean Corpuscular Volume 88.2 fL (80-94); Mean Platelet Vol. 9.9 fl (6.2-12.0); Monocyte# 0.76 X10^3/uL; Monocyte% 7.2 % (0-10); NRBC Flagged by Analyzer 0 % (0-5); Neutrophil # 8.41 X10^3/uL (2.7-7.7); Neutrophil % 79.6 % (47-70); Platelet Count 462 K/mm3 (150-450); RBC Distribution Width CV 13.5 % (11.6-14.6); RBC Distribution Width SD 43.6 fl (35.1-43.9); Red Blood Count 4.91 M/mm3 (4.6-6.2); White Blood Count 10.6 K/mm3 (4.4-11.0)
[2025-02-03 12:28] LABS: Color, Urine Yellow (Yellow); Glucose, Dipstick Normal (Normal); Ketone-Dipstick 5 mg/dl (Negative); Leukocyte Esterase-Dipstick 25 /ul (Negative); Nitrite-Dipstick Negative (Negative); Occult Blood-Urine 150 /ul (Negative); Protein-Dipstick 30 mg/dl (Negative); Specific Gravity, Urine 1.015 (1.002-1.030); Urine Bilirubin Dipstick Negative (Negative); Urine Clarity Clear (Clear); Urine Urobilinogen Normal (Normal)
[2025-02-03 12:43] LABS: Hemoglobin A1c 6.4 % (<=5.6)
[2025-02-03 12:51] LABS: Red Blood Cells-Urine 10-25 SEEN /hpf (0-5); White Blood Cells 0-5 SEEN /hpf (0-5)
[2025-02-03 12:54] LABS: Mucous, Urine 1+ /hpf (<or=2+); Squamous Epithelial Cells - UA 0-5 SEEN /hpf (0-5); Yeast-Urine 1+ /hpf (None Seen)
[2025-02-03 13:38] LABS: AST(SGOT) 34 U/L (<=37); Alanine Aminotransfer ALT/SGPT 36 U/L (<=46); Albumin, Serum 3.6 g/dL (3.4-4.8); Alkaline Phosphatase 118 U/L (40-129); Anion Gap 14 (5-15); BUN 13 mg/dL (4-19); BUN/Creat Ratio 12.4 RATIO (10-20); Calcium,Total 9.2 mg/dL (7.6-11.0); Carbon Dioxide 21.4 mmol/L (21.0-32.0); Chloride 100 mmol/L (98-108); Cholesterol 101 mg/dL (<=200); Creatinine, Serum 1.07 mg/dL (0.70-1.20); EST Glomerular Filtration Rate 77 (>60); Globulin 3.5 g/dL (2.2-4.2); Glucose 124 mg/dL (70-99); High Density Lipoprotein 28 mg/dL; Low Density Lipoprotein Calc. 48 mg/dL; Magnesium 1.6 mg/dL (1.5-2.2); Potassium 4.1 mmol/L (3.3-5.1); Protein, Total 7.1 g/dL (5.9-8.4); Sodium Level 136 mmol/L (133-145); Triglycerides 121 mg/dL; Very Low Density Lipoprotein 24 mg/dL (5-40); cholesterol:hdl ratio screen 3.56
== END | disposition home or self-care (01) ==
LOC: MFPLAB 10:04
PROVIDERS: PCP Family Medicine; Referring Provider Family Medicine; Visit Provider Family Medicine
DX: R73.02 Impaired glucose tolerance (oral) (principal); I48.91 Unspecified atrial fibrillation; I10 Essential (primary) hypertension
CPT/HCPCS: 36415; 80053; 80061; 81001; 83036; 83735; 84443; 85025

== ENCOUNTER → 2025-02-05 | Outpatient (CLI) | payer MEDICARE, SELFPAY ==
--- NOTE | 2025-02-05 11:45 | CYSPIN_PTH ---
PATIENT: PAT CONNOLLY LOC: [facility] U#:[id number] AGE/SX: 64/M ROOM: RE02/05/[address]: Dr. Markus Gunter MD : [id number] BED: DIS: 02/05/2025 SPEC #: [id number] RECD: 02/05/25 15:00 STATUS: BEN HERNANDEZ #: [id number] ROMAN: 02/05/25 11:[address]: Markus Gunter DEPT: CYTOLOGY RECD BY: Shari Tellez Tissues: A - Urine Procedures: Pap Stain (control) Special Stain Group II Cytospin Fluid HEADER OPERATION: Not noted PRE-OP DIAGNOSIS: Hematuria TISSUE SUBMITTED: A- Urine for cytology - clean catch DIAGNOSIS CYTOLOGY A. Urine clean catch: * No malignant cells are identified CYTOLOGY STUDY Slides are reviewed. CYTOLOGY GROSS A. Received is <1 ml of cloudy dark-yellow fluid labeled with the patient's name and and designated per the requisition as urine - clean catch. Submitted for cytology preparation. Mr 02/06/2025 CPT: 91631
[2025-02-05 11:46] LABS: Cytology, Body Fluid / CSF SEE PATHOLOGY REPORT; Squamous Epithelial Cells - UA 0 SEEN /hpf (0-5)
[2025-02-05 16:15] LABS: Color, Urine Yellow (Yellow); Glucose, Dipstick Normal (Normal); Ketone-Dipstick 5 mg/dl (Negative); Leukocyte Esterase-Dipstick 25 /ul (Negative); Nitrite-Dipstick Negative (Negative); Occult Blood-Urine 150 /ul (Negative); Protein-Dipstick 30 mg/dl (Negative); Urine Clarity Sl. Cloudy (Clear); Urine Urobilinogen 1 mg/dl (Normal)
[2025-02-05 16:28] LABS: Urine Bilirubin Dipstick 1 mg/dL (Negative)
[2025-02-05 16:30] LABS: Mucous, Urine 2+ /hpf (<or=2+); Red Blood Cells-Urine 5-10 SEEN /hpf (0-5); White Blood Cells 0-5 SEEN /hpf (0-5)
[2025-02-05 16:31] LABS: Bacteria 1+ /hpf (None Seen); Calcium Oxalate Crystals Ur RARE /hpf (<or=2+)
== END | disposition home or self-care (01) ==
LOC: MFPLAB 11:44
PROVIDERS: PCP Family Medicine; Referring Provider Family Medicine; Visit Provider Family Medicine
DX: R31.9 Hematuria, unspecified (principal)
CPT/HCPCS: 81001; 87086; 87088; 88108; 88313

== ENCOUNTER → 2025-06-09 | Outpatient (CLI) | payer MEDICARE, SELFPAY ==
[2025-06-09 10:42] LABS: Red Blood Cells-Urine 0 SEEN /hpf (0-5)
[2025-06-09 12:25] LABS: Color, Urine Yellow (Yellow); Glucose, Dipstick Normal (Normal); Ketone-Dipstick 5 mg/dl (Negative); Leukocyte Esterase-Dipstick 25 /ul (Negative); Nitrite-Dipstick Negative (Negative); Occult Blood-Urine 10 /ul (Negative); Protein-Dipstick 30 mg/dl (Negative); Specific Gravity, Urine 1.020 (1.002-1.030); Urine Bilirubin Dipstick Negative (Negative)
[2025-06-09 12:27] LABS: Hematocrit 53.1 % (40-54); Hemoglobin 17.6 g/dL (13.0-16.5); Immature Granulocytes Count 0.040 X10^3/uL (0.0-0.0); Mean Corp Hgb Conc 33.1 g/dL (32-36); Mean Corpuscular Volume 89.2 fL (80-94); Mean Platelet Vol. 9.5 fl (6.2-12.0); NRBC Flagged by Analyzer 0 % (0-5); Platelet Count 308 K/mm3 (150-450); RBC Distribution Width CV 13.4 % (11.6-14.6); RBC Distribution Width SD 43.7 fl (35.1-43.9); Red Blood Count 5.95 M/mm3 (4.6-6.2); White Blood Count 7.6 K/mm3 (4.4-11.0)
[2025-06-09 12:36] LABS: Squamous Epithelial Cells - UA 0-5 SEEN /hpf (0-5)
[2025-06-09 12:37] LABS: Mucous, Urine RARE /hpf (<or=2+)
[2025-06-09 12:52] LABS: AST(SGOT) 21 U/L (<=37); Alanine Aminotransfer ALT/SGPT 24 U/L (<=46); Albumin, Serum 4.1 g/dL (3.4-4.8); Alkaline Phosphatase 103 U/L (40-129); Anion Gap 11 (5-15); BUN 19 mg/dL (4-19); BUN/Creat Ratio 16.6 RATIO (10-20); Calcium,Total 9.7 mg/dL (7.6-11.0); Carbon Dioxide 23.9 mmol/L (21.0-32.0); Chloride 103 mmol/L (98-108); Cholesterol 115 mg/dL (<=200); Globulin 3.4 g/dL (2.2-4.2); Glucose 123 mg/dL (70-99); Low Density Lipoprotein Calc. 55 mg/dL; Magnesium 2.2 mg/dL (1.5-2.2); Potassium 5.5 mmol/L (3.3-5.1); Triglycerides 98 mg/dL; Very Low Density Lipoprotein 20 mg/dL (5-40); cholesterol:hdl ratio screen 2.88
[2025-06-09 17:29] LABS: Iron 88 ug/dL (65-175); Iron Binding Capacity,Unsat 128 ug/dL (228-428)
[2025-06-09 19:13] LABS: Iron Binding Capacity,Total 216 ug/dL (250-450)
[2025-06-10 13:11] LABS: PSA,Total - Annual Screen 0.86 ng/mL (0.02-4.00)
[2025-06-10 14:04] LABS: Potassium 4.4 mmol/L (3.3-5.1)
[2025-06-11 12:09] LABS: Transferrin 197 mg/dL (177-329)
== END | disposition home or self-care (01) ==
LOC: MFPLAB 10:32
PROVIDERS: PCP Family Medicine; Referring Provider Family Medicine; Visit Provider Family Medicine
DX: I10 Essential (primary) hypertension (principal); E87.5 Hyperkalemia; R71.8 Other abnormality of red blood cells; R73.02 Impaired glucose tolerance (oral); Z12.5 Encounter for screening for malignant neoplasm of prostate
CPT/HCPCS: 36415; 80053; 80061; 81001; 83036; 83540; 83550; 83735; 84132; 84153; 84466; 85025; G0103

== ENCOUNTER → 2025-06-10 | Outpatient (CLI) | payer MEDICARE, SELFPAY | END | disposition home or self-care (01) | LOC: MFPLAB 09:05 | PROVIDERS: PCP Family Medicine; Visit Provider Family Medicine | DX: E87.5 Hyperkalemia (principal); R71.8 Other abnormality of red blood cells ==